=== PATIENT | female | born 1950 | race African-American/Black ===

== ENCOUNTER → 2017-07-21 | Day surgery (SDC) | payer MEDICARE ==
--- NOTE | 2017-07-18 11:56 | Diagnostic Imaging Report ---
PROCEDURE: X-RAY CHEST, TWO VIEWS COMPARISON: Acute abdominal series 10/18/2016. INDICATIONS: PREOP FINDINGS: Lungs are well-inflated. Calcified granuloma in the right lower lung is unchanged and no consolidation, pleural effusion, or pneumothorax. Stable cardiomediastinal contour with tortuosity and atherosclerotic calcification of the thoracic aorta. Normal heart size. No pulmonary edema. No acute osseous abnormality. Multilevel degenerative disc changes of the thoracic spine. Surgical clips project over the midepigastric region. CONCLUSION: No acute cardiopulmonary abnormality. Dictated by: Joseph Mosley M.D. on 07/18/2017 at 12:04 Electronically approved by: Joseph Mosley M.D. on 07/18/2017 at 12:04
[2017-07-18 12:04] LABS: BASOPHILS % 0.7 % (0.0-1.0); EOSINOPHILS # (AUTO) 0.1 (0.0-0.4); EOSINOPHILS % 0.9 % (0.0-6.0); HEMATOCRIT 38.6 % (34.2-44.1); HEMOGLOBIN 12.5 g/dL (12.0-16.0); LYMPHOCYTES # (AUTO) 1.5 (1.0-3.2); LYMPHOCYTES % 26.1 % (18.0-39.1); MEAN CORPUSCULAR HEMOGLOBIN 28.2 pg (28-32); MEAN CORPUSCULAR HGB CONC 32.4 g/dL (31-35); MEAN CORPUSCULAR VOLUME 87.1 fL (81-99); MONOCYTES # (AUTO) 0.4 (0.2-0.8); MONOCYTES % 6.9 % (4.4-11.3); NEUTROPHILS # (AUTO) 3.7 (2.1-6.9); NEUTROPHILS % 65.2 % (38.7-80.0); PLATELET COUNT 173 x10e3/uL (140-360); RED BLOOD COUNT 4.43 x10e6/uL (3.6-5.1); RED CELL DISTRIBUTION WIDTH 13.2 % (11.7-14.4)
[2017-07-18 12:21] LABS: ANION GAP 12.1 mmol/L (8-16); BLOOD UREA NITROGEN 19 mg/dL (7-26); BUN/CREATININE RATIO 20 (6-25); CALCIUM 9.3 mg/dL (8.4-10.2); CARBON DIOXIDE 27 mmol/L (22-29); CHLORIDE 107 mmol/L (98-107); CREATININE, SERUM 0.94 mg/dL (0.57-1.11); EST GLOMERULAR FILTRATION RATE > 60 ML/MIN (60-); GLUCOSE 151 mg/dL (74-118); POTASSIUM 4.1 mmol/L (3.5-5.1); SODIUM 142 mmol/L (136-145)
[~2017-07-21] MED LIST: ACTOS30 MG PO; AMARYL2 MG PO; AMOXICILLIN500 M1 PO; ASA-CA CARB-MA325 MG; ASPIR 8181 MG PO; ASPIRIN PO; ATORVASTATIN CA20 MG PO; BACTRIM DS TAB1 EACH PO; BUPIVACAINE HCL 0.5% INJ 30 ML VIAL INJ ONE; CALCIUM PO; CARAFATE1 GM/10 ML PO; CEFAZOLIN SOD 1 GM/NS 50ML 50 ML IV ONE; CEPHALEXIN500 MG PO; CIPRO500 MG PO; DEXAMETHASONE SOD PHOS INJ 4 MG/ML VIAL ONE; DEXTROSE 5% 250ML 250 ML IV ONE; DSS100 MG PO; FENTANYL CITRATE/PF 100MCG/2 ML INJ ONE; FLAGYL250 MG PO; GABAPENTIN300 MG PO; GLIMEPIRIDE2 MG PO; GLYBURIDE2.5 MG PO; LIDOCAINE HCL 2% LOCAL INJ 5 ML SDV VIAL INJ ONE; LISINOPRIL-HCT1 EACH PO; MIDAZOLAM HCL 2 MG/2 ML VIAL ONE; MORPHINE SULFATE 2 MG/ML SYR ONE; MUPIROCIN 2% OINT 22 GM TUBE ONE; MVI PO; NORVASC5 MG PO; OMEPRAZOLE20 M1 PO; ONDANSETRON HCL INJ 2 MG/ML VIAL ONE; PANTOPRAZOLE SO40 MG PO; PROMETHAZINE HC25 M1 PO; PROPOFOL IV EMULSION 10 MG/ML 20 ML VIAL ONE; REGLAN10 MG PO; SEVOFLURANE INHAL SOLN 250 ML PEN BTL ONE; TRIBENZOR 20-51 EACH PO; TYLENOL WITH C1 EACH PO; ULTRAM 50MG50 MG PO; VYTORIN 10-401 EACH PO; Z.0.BENICAR40 MG PO; Z.0.NEURONTIN300 MG; Z.0.NORVASC10 MG PO; Z.0.VYTORIN 10-401 E; ZOFRAN ODT4 MG PO; [UNRECOGNIZED DRUG - CODE] PO; [UNRECOGNIZED DRUG - OTHER]; [UNRECOGNIZED DRUG - OTHER]; [UNRECOGNIZED DRUG - REMARK]
--- NOTE | 2017-07-21 16:38 | Operative Report ---
DATE OF PROCEDURE: July 21, 2017 PREOPERATIVE DIAGNOSIS: Right carpal tunnel syndrome. POSTOPERATIVE DIAGNOSES 1. Right carpal tunnel syndrome. 2. Flexor tenosynovitis, right wrist. PROCEDURES 1. Right open carpal tunnel release. 2. Flexor tenosynovectomy, right wrist. ANESTHESIA: General. HISTORY: The patient is a 66-year-old female with EMG-proven right carpal tunnel syndrome. Risks, benefits and alternatives of treatment were discussed with the patient. The patient is prepared to undergo the procedure as outlined. PROCEDURE: The patient was brought to the operating theater. After the induction of adequate general inhalation anesthesia, the patient was prepped and draped in the supine position. A time out was performed by the entire operating room team. A 2.5-cm incision was marked out in the intrathenar space. The right upper extremity was exsanguinated and a tourniquet was inflated to a pressure of 250 mmHg. The incision was made through the skin and subcutaneous tissues, and all venous tributaries were controlled with bipolar cautery. The incision was deepened through the palmar fascia until the transverse carpal ligament was identified. The ligament was sharply sectioned, taking care to protect and preserve the median nerve underlying it. After the complete width of the ligament had been transected, the distal volar forearm fascia was divided under direct view. Proliferative flexor tenosynovium was noticed to encompass the median nerve and this was radically excised. After performing this maneuver, the nerve was noted to lie adequately decompressed. The wound was copiously irrigated with bacteriostatic saline, closed with 5-0 nylon in an interrupted horizontal mattress fashion. A Marcaine field block was performed at the operative site. Tourniquet was deflated. All of the fingers pinked up nicely and a sterile bulking conforming bandage was applied to the hand and the wrist. A fiberglass splint was fashioned to maintain the wrist in a modest amount of extension. This was held in place with a loosely wrapped Zheng wrap. The patient tolerated the procedure well and was brought to the recovery room in satisfactory condition and discharged with a postoperative instruction sheet as well as a followup appointment. Job#: [id number]
--- NOTE | 2017-07-21 16:40 | Operative Report ---
DATE OF PROCEDURE: July 21, 2017 PREOPERATIVE DIAGNOSIS: Left carpal tunnel syndrome. POSTOPERATIVE DIAGNOSES 1. Left carpal tunnel syndrome. 2. Flexor tenosynovitis, left wrist. PROCEDURES 1. Left open carpal tunnel release. 2. Flexor tenosynovectomy, left wrist. ANESTHESIA: General. HISTORY: The patient is a 66-year-old female with EMG-proven left carpal tunnel syndrome. Risks, benefits and alternatives of treatment were discussed with the patient. The patient is prepared to undergo the procedure as outlined. PROCEDURE: The patient was brought to the operating theater. After the induction of adequate general inhalation anesthesia, the patient was prepped and draped in the supine position. A time out was performed by the entire operating room team. A 2.5-cm incision was marked out in the intrathenar space. The left upper extremity was exsanguinated and a tourniquet was inflated to a pressure of 250 mmHg. The incision was made through the skin and subcutaneous tissues and all venous tributaries were controlled with bipolar cautery. The incision was deepened through the palmar fascia until the transverse carpal ligament was identified. The ligament was sharply sectioned, taking care to protect and preserve the median nerve underlying it. After the complete width of the ligament had been transected, the distal volar forearm fascia was divided under direct view. Proliferative flexor tenosynovium was noticed to encompass the median nerve and this was radically excised. After performing this maneuver, the nerve was noted to lie adequately decompressed. The wound was copiously irrigated with bacteriostatic saline, closed with 5-0 nylon in an interrupted horizontal mattress fashion. A Marcaine field block was performed at the operative site. Tourniquet was deflated. All of the fingers pinked up nicely and a sterile bulking conforming bandage was applied to the hand and the wrist. A fiberglass splint was fashioned to maintain the wrist in a modest amount of extension. This was held in place with a loosely wrapped Zheng wrap. The patient tolerated the procedure well and was brought to the recovery room in satisfactory condition and discharged with a postoperative instruction sheet as well as a followup appointment. Job#: [id number]
== END | disposition home or self-care (01) ==
LOC: OR 07:29
PROVIDERS: ATTEND Plastic Surgery
DX: G56.02 Carpal tunnel syndrome, left upper limb (principal); M65.842 Other synovitis and tenosynovitis, left hand; G56.01 Carpal tunnel syndrome, right upper limb; M65.841 Other synovitis and tenosynovitis, right hand; G47.33 Obstructive sleep apnea (adult) (pediatric); I10 Essential (primary) hypertension; E11.9 Type 2 diabetes mellitus without complications; K21.9 Gastro-esophageal reflux disease without esophagitis; Z01.810 Encounter for preprocedural cardiovascular examination; Z01.812 Encounter for preprocedural laboratory examination; Z01.818 Encounter for other preprocedural examination; Z86.73 Personal history of transient ischemic attack (TIA), and cerebral infarction without residual deficits
CPT/HCPCS: 25115; 36415 ×2; 71020; 80048; 82948; 85025; 93005; J1100; J2001; J2250; J2270; J2405

== ENCOUNTER → 2017-07-23 | Day surgery (SDC) | payer MEDICARE ==
[~2017-07-23] MED LIST changes: -BUPIVACAINE HCL 0.5% INJ 30 ML VIAL INJ ONE; -CEFAZOLIN SOD 1 GM/NS 50ML 50 ML IV ONE; -DEXAMETHASONE SOD PHOS INJ 4 MG/ML VIAL ONE; -DEXTROSE 5% 250ML 250 ML IV ONE; -MORPHINE SULFATE 2 MG/ML SYR ONE; -MUPIROCIN 2% OINT 22 GM TUBE ONE; -ONDANSETRON HCL INJ 2 MG/ML VIAL ONE; -PROPOFOL IV EMULSION 10 MG/ML 20 ML VIAL ONE; +PROPOFOL IV EMULSION 10 MG/ML 50 ML VIAL ONE; -SEVOFLURANE INHAL SOLN 250 ML PEN BTL ONE
--- NOTE | 2017-07-23 09:04 | Operative Report ---
DATE OF PROCEDURE: July 23, 2017 PROCEDURE PERFORMED: Esophagogastroduodenoscopy with esophageal dilatation. REFERRING PHYSICIAN: Dr. Michelle Silverman INDICATIONS FOR EGD: Dysphagia to solids. MEDICATION: Patient was done under MAC. Please see anesthesiologist note. PROCEDURE IN DETAIL: With the patient in left lateral decubitus position, flexible fiberoptic Olympus gastroscope was introduced into the esophagus under direct visualization without any difficulty. The esophagus overall appeared to be within normal limits. There was a mild stricture noted at the GE junction that was dilated to size 52-Salvadorean Rausch. The scope was advanced into a gastric cuff. Patient is status post Michele-en-Y with intact anastomosis and no marginal ulcers, enteric loop was patent. The scope was subsequently withdrawn. Patient tolerated the procedure well. IMPRESSION: 1. Normal esophagus. 2. Esophageal stricture, gastroesophageal junction, dilated to size 52-Salvadorean Rausch. 3. Status post Michele-en-Y, anastomosis intact, no marginal ulcers. Enteric loop patent. PLAN: Continue Protonix 40 mg 1 p.o. a.c. b.i.d. as well as Reglan 10 mg p.o. nightly. Job#: [id number] cc:MICHELLE SILVERMAN MD
== END | disposition home or self-care (01) ==
LOC: OR 06:24
PROVIDERS: ATTEND Internal Medicine Gastroenterology
DX: K22.2 Esophageal obstruction (principal); Z98.84 Bariatric surgery status; K21.9 Gastro-esophageal reflux disease without esophagitis; K25.9 Gastric ulcer, unspecified as acute or chronic, without hemorrhage or perforation; G47.33 Obstructive sleep apnea (adult) (pediatric); I10 Essential (primary) hypertension; E11.9 Type 2 diabetes mellitus without complications; M19.90 Unspecified osteoarthritis, unspecified site; Z86.73 Personal history of transient ischemic attack (TIA), and cerebral infarction without residual deficits
CPT/HCPCS: 36415; 43235; 43450; 82948; J2001; J2250

== ENCOUNTER → 2017-08-12 | Outpatient (CLI) | payer MEDICARE ==
[~2017-08-12] MED LIST changes: +DIATRIZOATE MEGL/DIATRIZOA SOD 120 ML BTL PO ONE; -FENTANYL CITRATE/PF 100MCG/2 ML INJ ONE; -LIDOCAINE HCL 2% LOCAL INJ 5 ML SDV VIAL INJ ONE; -MIDAZOLAM HCL 2 MG/2 ML VIAL ONE; -PROPOFOL IV EMULSION 10 MG/ML 50 ML VIAL ONE
[2017-08-12 18:27] LABS: BLOOD UREA NITROGEN 17 mg/dL (7-26); BUN/CREATININE RATIO 22 (6-25); CREATININE, SERUM 0.78 mg/dL (0.57-1.11); EST GLOMERULAR FILTRATION RATE > 60 ML/MIN (60-)
--- NOTE | 2017-08-12 19:46 | Diagnostic Imaging Report ---
EXAM: CT Abdomen and Pelvis WITHOUT contrast INDICATION: Abdominal pain. Hernia repair. Appendectomy. Cholecystectomy. Intestinal surgery COMPARISON: 09/29/2015 TECHNIQUE: Abdomen and pelvis were scanned utilizing a multidetector helical scanner from the lung base to the pubic symphysis without administration of IV contrast. Absence of intravenous contrast decreases sensitivity for detection of focal lesions and vascular pathology. Coronal and sagittal reformations were obtained. Routine protocol was performed. IV CONTRAST: None. ORAL CONTRAST: Water RADIATION DOSE: Total DLP: 713.04 mGy*cm Estimated effective dose: (DLP x 0.015 x size factor) mSv COMPLICATIONS: None FINDINGS: LOWER THORAX: No consolidations LIVER/BILIARY: Hepatic steatosis. Cholecystectomy. SPLEEN/PANCREAS: No masses ADRENALS: No nodules KIDNEYS: Symmetric perfusion. No enhancing masses. No hydronephrosis. GI TRACT: Status post gastric bypass VESSELS: Atherosclerotic changes, mild PERITONEUM/RETROPERITONEUM: No free air or fluid LYMPH NODES: No lymphadenopathy REPRODUCTIVE ORGANS: Unremarkable BLADDER: Unremarkable SOFT TISSUES: Thinning of the lower anterior right abdominal wall with stranding in the adjacent subcutaneous fat best seen on series 2 image 63. This measures approximately 4 cm in maximal dimension and may extend to the skin surface. Additionally, there is a round fluid collection which appears to extend from the anterior perivagina region superiorly to the level of the anterior abdominal rectus musculature. The appearance of this is essentially unchanged and of unknown clinical significance. This is best seen on series 2 image 65. BONES: No suspicious bone lesions. IMPRESSION: Limited study without the use of IV contrast. Repair of the previously seen anterior right abdominal lower quadrant hernia. There is some fat stranding/fluid in the adjacent subcutaneous fat which may extend to the skin surface. No well-formed drainable fluid collection/abscess is seen. Additionally, there is a round fluid collection which appears to extend from the anterior perivagina region superiorly to the level of the anterior abdominal rectus musculature. The appearance of this is essentially unchanged and of unknown clinical significance. Signed by: Dr. Collin Kuhn M.D. on 08/12/2017 7:42 PM
== END ==
LOC: CT 16:52
PROVIDERS: ATTEND Internal Medicine Gastroenterology
DX: R10.9 Unspecified abdominal pain (principal)
CPT/HCPCS: 36415; 74176; 82565; 84520; Q9963

== ENCOUNTER → 2017-08-30 | Outpatient (CLI) | payer MEDICARE ==
[~2017-08-30] MED LIST changes: -DIATRIZOATE MEGL/DIATRIZOA SOD 120 ML BTL PO ONE; +EPHEDRINE SULFATE INJ 50 MG/10 ML SYR ONE; +FENTANYL CITRATE/PF 100MCG/2 ML INJ ONE; +LABETALOL HCL IV 5 MG/ML 20ML MDV ONE; +LIDOCAINE HCL 2% LOCAL INJ 5 ML SDV VIAL INJ ONE; +MIDAZOLAM HCL 2 MG/2 ML VIAL ONE; +SODIUM CHLORIDE 0.9% 250ML 500 ML ONE
--- NOTE | 2017-08-30 11:41 | Diagnostic Imaging Report ---
EXAMINATION: MRI of the lumbar spine without contrast HISTORY: Low back pain radiating to the right greater than left lower extremities with numbness and weakness for the last 2 years COMPARISON: Abdomen CT on 08/12/2017 TECHNIQUE: Sagittal T1, T2, STIR; axial T2 and proton density. FINDINGS: It is assumed that there are 5 lumbar vertebrae. Curvature/Alignment: -Normal lumbar lordosis. -Grade 1 degenerative spondylolisthesis at L4-5. -Mild kyphotic malalignment secondary the thoracolumbar region related to mild chronic compression deformity of the T10, T11 and T12 vertebral bodies, partially visualized prominent anterior bridging osteophyte in the lower thoracic spine. Vertebrae: No evidence of recent fracture, infection, or neoplasm. Prominent chronic endplate degenerative changes T10-T11 to T12-L1. Conus: Normal, terminating at L2 Cauda equina: Unremarkable. Lower thoracic: Decreased disc height and signal intensity at T10-T11, T11-T12 and T12-L1, symmetric disc bulges and marginal end plate osteophytes, no significant stenoses Paraspinal soft tissues: Moderate atrophy of the paraspinal muscles Degenerative changes: L1-L2: Unremarkable. L2-L3: Minimal symmetric disc bulge and facet arthrosis without stenosis L3-L4: Minimal asymmetrical right disc bulge and facet arthroses. No stenoses L4-L5: Prominent facet arthrosis, asymmetric to left disc bulge, ligamenta flava thickening and facet processes. Moderate spinal canal and mild foraminal stenosis mainly on the right. Minimal right facet joint effusion, bone marrow edema and periarticular swelling related to degenerative synovitis. L5-S1: Slightly asymmetric to the right disc bulge bilateral facet arthrosis. Mild right foraminal stenoses. Sacroiliac joints: Mild degenerative changes bilaterally IMPRESSION: 1. Grade 1 degenerative anterolisthesis at L4-5 due to left facet arthrosis. 2. Moderate degenerative spinal canal and mild foraminal stenoses at L4-5. 3. Mild degenerative facet synovitis mainly of the right side at L4-5. 4. Partially visualized degenerative changes in the lower thoracic spine as detailed above. Signed by: Dr. Megha Masters M.D. on 08/30/2017 11:37 AM
== END ==
LOC: MRI 07:35
PROVIDERS: ATTEND Physical Medicine & Rehabilitation Pain Medicine
DX: M54.16 Radiculopathy, lumbar region (principal); M48.061 Spinal stenosis, lumbar region without neurogenic claudication
CPT/HCPCS: 72148; J2001; J2250; J3490; J7050

== ENCOUNTER → 2017-09-01 | Day surgery (SDC) | payer MEDICARE ==
[2017-08-29 16:21] LABS: BASOPHILS % 0.6 % (0.0-1.0); EOSINOPHILS # (AUTO) 0.1 (0.0-0.4); EOSINOPHILS % 2.1 % (0.0-6.0); HEMATOCRIT 37.8 % (34.2-44.1); HEMOGLOBIN 12.1 g/dL (12.0-16.0); LYMPHOCYTES # (AUTO) 1.4 (1.0-3.2); LYMPHOCYTES % 28.8 % (18.0-39.1); MEAN CORPUSCULAR VOLUME 87.5 fL (81-99); MONOCYTES # (AUTO) 0.4 (0.2-0.8); MONOCYTES % 7.5 % (4.4-11.3); NEUTROPHILS # (AUTO) 2.9 (2.1-6.9); NEUTROPHILS % 60.8 % (38.7-80.0); PLATELET COUNT 189 x10e3/uL (140-360); RED BLOOD COUNT 4.32 x10e6/uL (3.6-5.1); RED CELL DISTRIBUTION WIDTH 13.1 % (11.7-14.4)
[2017-08-29 16:43] LABS: ANION GAP 12.6 mmol/L (8-16); BLOOD UREA NITROGEN 18 mg/dL (7-26); BUN/CREATININE RATIO 23 (6-25); CALCIUM 8.7 mg/dL (8.4-10.2); CARBON DIOXIDE 27 mmol/L (22-29); CHLORIDE 105 mmol/L (98-107); EST GLOMERULAR FILTRATION RATE > 60 ML/MIN (60-); GLUCOSE 88 mg/dL (74-118); POTASSIUM 3.6 mmol/L (3.5-5.1); SODIUM 141 mmol/L (136-145)
--- NOTE | 2017-08-29 16:46 | Diagnostic Imaging Report ---
PROCEDURE: Frontal and lateral views of the chest. COMPARISON: 07/18/17 INDICATIONS: PRE OP FINDINGS: Lines/tubes: None. Lungs: The lungs are well inflated and clear. There is no evidence of pneumonia or pulmonary edema. Pleura: There is no pleural effusion or pneumothorax. Heart and mediastinum: The heart and the mediastinum are normal. Aorta is mildly calcified and tortuous. Bones: No acute bony abnormality. Degenerative changes of the thoracic spine. Right upper quadrant surgical clips. IMPRESSION: 1. No acute cardiopulmonary disease. Dictated by: Rigo Briseno M.D. on 08/29/2017 at 16:54 Electronically approved by: Rigo Briseno M.D. on 08/29/2017 at 16:54
[~2017-09-01] MED LIST changes: +BACITRACIN 50,000 UNIT VIAL ONE; +BUPIVACAINE HCL 0.5% INJ 30 ML VIAL INJ ONE; +CEFAZOLIN SOD 1 GM VIAL ONE; +DESFLURANE 240 ML BTL INH ONE; +DEXAMETHASONE SOD PHOS INJ 4 MG/ML VIAL ONE; -LABETALOL HCL IV 5 MG/ML 20ML MDV ONE; +METOCLOPRAMIDE HCL 10 MG/2ML VIAL ONE; +ONDANSETRON HCL INJ 2 MG/ML VIAL ONE; +PROPOFOL IV EMULSION 10 MG/ML 20 ML VIAL ONE; -SODIUM CHLORIDE 0.9% 250ML 500 ML ONE
--- OUTSIDE RECORDS SUMMARY | 2017-09-01 05:31 | XMS REPORT | Clinical Summary ---
Author Author [facility] Organization [facility] Address Unknown Phone Unavailable Care Team Providers Care Assistant Service Manager Name Role Phone Quinten Silverman MD PCP Allergies No Known Allergies Current Medications Prescription Sig. Disp. Refills Start End Date Status Date diazePAM (VALIUM) 5 MG Take 1 tablet (5 mg 1 tablet 0 08/26/1908/27 tablet total) by mouth daily as 18 18 needed for anxiety for up to 1 day. Active Problems No known active problems Encounters Date Type Specialty Care Team Description 08/31/2017 Office Visit General Surgery Jalil Zepeda MD Abdominal wall fistula (Primary Dx) 08/31/2017 Hospital Radiology Jalil Zepeda MD Abdominal fistula Encounter 08/26/2017 Office Visit General Surgery Ivis Nash Enterocutaneous fistula STEF[facility]IA [place] (Primary Dx) Jalil Zepeda MD 08/26/2017 Orders Only General Surgery Jalil Zepeda MD Abdominal fistula (Primary Dx) after 08/31/2016 Family History Medical History Relation Name Comments Colon cancer Brother Arthritis Father Diabetes Father Heart disease Father Arthritis Mother Relation Name Status Comments Brother Father Mother Social History Tobacco Use Types Packs/Day Years Used Date Never Smoker Smokeless Tobacco: Never Used Alcohol Use Drinks/Week oz/Week Comments No Sex Assigned at Date Recorded Not on file Last Filed Vital Signs Vital Sign Reading Time Taken Blood Pressure 110/65 08/31/2017 12:50 PM [employer] Pulse 69 08/31/2017 12:50 PM [employer] Temperature 36.8 C (98.2 F) 08/31/2017 12:50 PM [employer] Respiratory Rate - - Oxygen Saturation - - Inhaled Oxygen - - Concentration Weight 96.2 kg (212 lb) 08/26/2017 11:13 AM [employer] Height 149.9 cm (4' 11") 08/26/2017 11:13 AM [employer] Body Mass Index 42.82 08/26/2017 11:13 AM [employer] Plan of Treatment Health Maintenance Due Date Last Done Comments COLONOSCOPY 10/25/1999 MAMMOGRAM 10/25/1999 ZOSTER VACCINE 2009 PNEUMOCOCCAL-13 2014 INFLUENZA VACCINE 03/01/2017 PNEUMOCOCCAL Completed 05/26/2016 POLYSACCHARIDE VACCINE AGE 65 AND OVER Results * [place] Sinus Tract Injection Fistulogram (08/31/2017 9:45 AM) Specimen Performing Laboratory [facility] [address] [place] [address] Narrative EXAMINATION:[place] SINUS TRACT INJECTION FISTULOGRAM CLINICAL HISTORY:K63.2 Fistula of intestine, abdominal Fistula COMPARISON:None. FINDINGS: 1 minute fluoroscopic time. Dose equals 93 mgy No previous images were available for comparison. Utilizing sterile technique, the small opening just superior to the right labia was catheterized and advanced approximately 2 cm. Instillation of water-soluble contrast demonstrates a small 1 cm collection that does not communicate. Further evaluation with MR of the pelvis and perineum may be of benefit. IMPRESSION: Very small sinus tract [id number] Procedure Note Interface, Radiology Results Incoming - 08/31/2017 10:33 AM [employer] EXAMINATION: [place] SINUS TRACT INJECTION FISTULOGRAM CLINICAL HISTORY: K63.2 Fistula of intestine, abdominal Fistula COMPARISON: None. FINDINGS: 1 minute fluoroscopic time. Dose equals 93 mgy No previous images were available for comparison. Utilizing sterile technique, the small opening just superior to the right labia was catheterized and advanced approximately 2 cm. Instillation of water-soluble contrast demonstrates a small 1 cm collection that does not communicate. Further evaluation with MR of the pelvis and perineum may be of benefit. IMPRESSION: Very small sinus tract [id number] after 08/31/2016 Insurance Payer Benefit Subscriber ID Type Phone Address Plan / Group MEDICARE MEDICARE [id number] Medicare [place] PART A AND B AARP AAR [id number] Commercial SUPPLEMENT
--- OUTSIDE RECORDS SUMMARY | 2017-09-01 05:31 | XMS REPORT ---
Author Author [facility] Address Unknown Phone Unavailable Care Team Providers Care Water Superintendent Name Role Phone Carmen COLUNGA Unavailable Unavailable SAMSON BURKETT Unavailable Unavailable KRYSTEN MAIN Unavailable Unavailable ANDREA STEEL Unavailable Unavailable MICHELLE HENDRIX Unavailable Unavailable Problems This patient has no known problems. Allergies, Adverse Reactions, Alerts This patient has no known allergies or adverse reactions. Medications This patient has no known medications. Results Test Description Test Time Test Comments Text Results Atomic Results Result Comments MRI SPINE LUMBAR WO [place] [address] Patient Name: YAYA ABBOTT MR #: [id number] : 1950 Age/Sex: 66/F Req #: [id number] Adm Physician: Ordered by: SAMSON BURKETT MD Report #: [id number] Location: MRI Room/Bed: Procedure: [id number] MRI/MRI SPINE LUMBAR WO Exam Date: 08/30/17 Exam Time: 0930 REPORT STATUS: Signed EXAMINATION: MRI of the lumbar spine without contrast HISTORY: Low back pain radiating to the right greater than left lower extremities with numbness and weakness for the last 2 years COMPARISON: Abdomen CT on 08/12/2017 TECHNIQUE: Sagittal T1, T2, STIR; axial T2 and proton density. FINDINGS: It is assumed that there are 5 lumbar vertebrae. Curvature/ Alignment: -Normal lumbar lordosis. -Grade 1 degenerative spondylolisthesis at L4-5. -Mild kyphotic malalignment secondary the thoracolumbar region related to mild chronic compression deformity of the T10 , T11 and T12 vertebral bodies, partially visualized prominent anterior bridging osteophyte in the lower thoracic spine. Vertebrae: No evidence of recent fracture, infection, or neoplasm. Prominent chronic endplate degenerative changes T10-T11 to T12-L1. Conus: Normal, terminating at L2 Cauda equina: Unremarkable. Lower thoracic: Decreased disc height and signal intensity at T10-T11, T11-T12 and T12-L1, symmetric disc bulges and marginal end plate osteophytes, no significant stenoses Paraspinal soft tissues: Moderate atrophy of the paraspinal muscles Degenerative changes: L1-L2: Unremarkable. L2-L3 : Minimal symmetric disc bulge and facet arthrosis without stenosis L3- L4: Minimal asymmetrical right disc bulge and facet arthroses. No stenoses L4-L5: Prominent facet arthrosis, asymmetric to left disc bulge, ligamenta flava thickening and facet processes. Moderate spinal canal and mild foraminal stenosis mainly on the right. Minimal right facet joint effusion, bone marrow edema and periarticular swelling related to degenerative synovitis. L5-S1: Slightly asymmetric to the right disc bulge bilateral facet arthrosis. Mild right foraminal stenoses. Sacroiliac joints: Mild degenerative changes bilaterally IMPRESSION: 1. Grade 1 degenerative anterolisthesis at L4-5 due to left facet arthrosis. 2. Moderate degenerative spinal canal and mild foraminal stenoses at L4- 5. 3. Mild degenerative facet synovitis mainly of the right side at L4-5. 4. Partially visualized degenerative changes in the lower thoracic spine as detailed above. Signed by: Dr. Isidoro Masters M.D. on 08/30/2017 11 :37 AM Dictated By: ISIDORO MASTERS MD 1138 Transcribed By: OMER on 08/30/17 1133 COPY TO: SAMSON BURKETT MD CHEST 2 VIEWS [place] [address] Patient Name: YAYA ABBOTT MR #: [id number] : 1950 Age/Sex: 66/F Req #: [id number] Adm Physician: Ordered by: ADAM BUSCH MD Report #: [id number] Location: OR Room/Bed: Procedure: [id number] DX/CHEST 2 VIEWS Exam Date: 08/29/17 Exam Time: 1620 REPORT STATUS: Signed PROCEDURE: Frontal and lateral views of the chest. COMPARISON: 07/18/17 INDICATIONS: PRE OP FINDINGS: Lines/tubes: None. Lungs: The lungs are well inflated and clear. There is no evidence of pneumonia or pulmonary edema. Pleura: There is no pleural effusion or pneumothorax. Heart and mediastinum: The heart and the mediastinum are normal. Aorta is mildly calcified and tortuous. Bones: No acute bony abnormality. Degenerative changes of the thoracic spine. Right upper quadrant surgical clips. IMPRESSION: 1. No acute cardiopulmonary disease. Dictated by: Rigo Rodriguez M.D. on 08/29/2017 at 16:54 Electronically approved by: Rigo Rodriguez M.D. on 08/29/2017 at 16:54 Dictated By: RIGO RODRIGUEZ MD 53 Transcribed By: PACHECO on 08/29/171653 COPY TO: ADAM BUSCH MD CT ABDOMEN/PELVIS [place] [address] Patient Name: YAYA ABBOTT MR #: [id number] : 1950 Age/Sex: 66/F Req #: [id number] Adm Physician: Ordered by: KRYSTEN MAIN MD Report #: [id number] Location: CT Room/Bed: Procedure: [id number] CT/CT ABDOMEN/PELVIS WO Exam Date: 08/12/17 Exam Time: 1908 REPORT STATUS: Signed EXAM: CT Abdomen and Pelvis WITHOUT contrast INDICATION: Abdominal pain. Hernia repair. Appendectomy. Cholecystectomy. Intestinal surgery COMPARISON: 09/29/2015 TECHNIQUE: Abdomen and pelvis were scanned utilizing a multidetector helical scanner from the lung base to the pubic symphysis without administration of IV contrast. Absence of intravenous contrast decreases sensitivity for detection of focal lesions and vascular pathology. Coronal and sagittal reformations were obtained. Routine protocol was performed. IV CONTRAST: None. ORAL CONTRAST: Water RADIATION DOSE: Total DLP : 713.04 mGy*cm Estimated effective dose: (DLP x 0.015 x size factor) mSv COMPLICATIONS: None FINDINGS: LOWER THORAX: No consolidations LIVER/BILIARY: Hepatic steatosis. Cholecystectomy. SPLEEN/PANCREAS: No masses ADRENALS: No nodules KIDNEYS: Symmetric perfusion. No enhancing masses. No hydronephrosis. GI TRACT: Status post gastric bypass VESSELS: Atherosclerotic changes, mild PERITONEUM/ RETROPERITONEUM: No free air or fluid LYMPH NODES: No lymphadenopathy REPRODUCTIVE ORGANS: Unremarkable BLADDER: Unremarkable SOFT TISSUES: Thinning of the lower anterior right abdominal wall with stranding in the adjacent subcutaneous fat best seen on series 2 image 63. This measures approximately 4 cm in maximal dimension and may extend to the skin surface. Additionally, there is a round fluid collection which appears to extend from the anterior perivagina region superiorly to the level of the anterior abdominal rectus musculature. The appearance of this is essentially unchanged and of unknown clinical significance. This is best seen on series 2 image 65. BONES: No suspicious bone lesions. IMPRESSION: Limited study without the use of IV contrast. Repair of the previously seen anterior right abdominal lower quadrant hernia. There is some fat stranding/fluid in the adjacent subcutaneous fat which may extend to the skin surface. No well- formed drainable fluid collection/abscess is seen. Additionally, there is a round fluid collection which appears to extend from the anterior perivagina region superiorly to the level of the anterior abdominal rectus musculature. The appearance of this is essentially unchanged and of unknown clinical significance. Signed by: Dr. Mateus Kuhn M.D. on 08/12/2017 7: 42 PM Dictated By: MATEUS KUHN MD, MD 41 Transcribed By: OMER on 08/12/171941 COPY TO: KRYSTEN MAIN MD CHEST [address] [facility] [address] [place] [address] Patient Name: YAYA ABBOTT MR #: [id number] : 1950 Age/Sex: 66/F Req #: [id number] Adm Physician: Ordered by: ANDREA STEEL MD Report #: [id number] Location: OR Room/Bed: Procedure: [id number] DX/CHEST 2 VIEWS Exam Date: 07/18/17 Exam Time : 1140 REPORT STATUS: Signed PROCEDURE: X-RAY CHEST, TWO VIEWS COMPARISON: Acute abdominal series 10/18/2016. INDICATIONS: PREOP FINDINGS: Lungs are well-inflated. Calcified granuloma in the right lower lung is unchanged and no consolidation, pleural effusion, or pneumothorax. Stable cardiomediastinal contour with tortuosity and atherosclerotic calcification of the thoracic aorta. Normal heart size. No pulmonary edema. No acute osseous abnormality. Multilevel degenerative disc changes of the thoracic spine. Surgical clips project over the midepigastric region. CONCLUSION: No acute cardiopulmonary abnormality. Dictated by: Vonda Mosley M.D. on 07/18/2017 at 12:04 Electronically approved by: Vonda Mosley M.D. on 07/18/2017 at 12:04 Dictated By: VONDA MOSLEY MD 1204 Transcribed By: PACHECO on 07/18/17 1204 COPY TO : ANDREA STEEL MD MRI SPINE CERVICAL WO [place] [address] Patient Name: YAYA ABBOTT MR #: [id number] : 1950 Age/Sex: 66/F Req #: [id number] Adm Physician: Ordered by: SAMSON BURKETT MD Report #: [id number] Location: MRI Room/Bed: Procedure: [id number] MRI/MRI SPINE CERVICAL WO Exam Date: 05/12/17 Exam Time: 1155 REPORT STATUS: Signed Exam: Cervical spine MRI without IV contrast History: Neck pain with pain that radiates down both legs and pain in arms. Comparison studies: None Technique: Sagittal T1, T2 and IR, axial T2 and axial gradient echo Intravenous contrast: None Findings: Exam is limited by artifacts related to patient motion. ] Alignment: Normal lordosis. No scoliosis. Cervicomedullary junction: No abnormalities. Patent foramen magnum. Soft tissues: No T2 hyperintense inflammatory changes. Spinal cord: Normal in size and signal from the foramen magnum through T1 Vertebrae: No fractures, infection or neoplasm. Degenerative changes: C2-C3: No abnormalities. C3-C4: No abnormalities. C4-C5: Small disc bulge does not result in significant canal stenosis. Patent foramina. C5-C6: Minimal canal stenosis due due to a small disc bulge. Mild left foraminal stenosis due to uncovertebral arthrosis. C6-C7: Minimal canal stenosis due to a small disc bulge. Mild bilateral foraminal stenosis due to uncovertebral arthrosis. C7-T1: No abnormalities. IMPRESSION: Mild degenerative changes with mild canal stenosis at C5-C6 and at C6-C7 and mild foraminal stenosis on the left at C5-C6 and bilaterally at C6-C7 stenosis. Signed by: Dr. Vonda Yin M.D. on 05/13/2017 3:00 PM Dictated By: VONDA YIN MD 99 COPY TO: SAMSON BURKETT MD FOOT RIGHT COMPLETE [place] [address] Patient Name: YAYA ABBOTT MR #: [id number] : 1950 Age/Sex: 66/F Req #: [id number] Adm Physician: Ordered by: MICHELLE HENDRIX MD Report #: [id number] Location: [facility] Room/Bed: _ Procedure: [id number] DX/FOOT RIGHT COMPLETE Exam Date: Exam Time: REPORT STATUS: Signed PROCEDURE: X-RAY RIGHT FOOT, COMPLETE COMPARISON: None. INDICATIONS: PAIN TO 3RD/4TH/ 5TH TOE ON RIGHT FOOT. HIT ON TUESDAY FINDINGS: There are no fractures, dislocations, lytic or blastic lesions. The bones are well- mineralized. The soft-tissues are unremarkable. CONCLUSION: No acute radiographic abnormality. Dictated by: Chelsea Madrid M.D. on 2016 at 12:52 Electronically approved by: Chelsea Madrid M.D. on 2016 at 12:52 Dictated By: CHELSEA MADRID MD 125 Transcribed By: PACHECO on 04/06/17 125 COPY TO: MICHELLE HENDRIX MD
--- NOTE | 2017-09-01 11:20 | Operative Report ---
DATE OF PROCEDURE: September 01, 2017 DATE OF : 1950 PREOPERATIVE DIAGNOSIS: Right hallux valgus. POSTOPERATIVE DIAGNOSIS: Right hallux valgus. PLANNED PROCEDURE: Right Blue bunionectomy with implant. SURGEON: Filomena Monet DPM MERCHANDISING EXECUTION MANAGER: Edgar Mcclellan DPM ANESTHESIA: General with a postoperative block consisting of 15 mL of 0.5% Marcaine plain mixed with 1 mL of dexamethasone phosphate. HEMOSTASIS: Pneumatic ankle tourniquet set at 250 mmHg for a total time of approximately 30 minutes. MATERIALS: One [id number] reference 1st MPJ implant, 2-0 Vicryl, 3-0 Vicryl, and 4-0 Prolene. ESTIMATED BLOOD LOSS: Less than 10 mL. PATHOLOGY: None. DETAILS OF PROCEDURE: Patient was seen in the preoperative waiting room where the correct procedure and the site was identified. The patient was brought into the operating room and placed on the operating table in the supine position. General anesthesia was initiated at this time. A well-padded pneumatic tourniquet was placed about the patient's right ankle. The right foot and ankle were then scrubbed, prepped, and draped in the usual aseptic manner. The right foot and ankle were exsanguinated with an Esmarch bandage and the pneumatic ankle tourniquet was inflated to 250 mmHg for a total time of approximately 30 minutes. Attention was directed to the dorsal aspect of the patient's right 1st metatarsophalangeal joint where a 5 cm linear incision was made medial to the extensor hallucis longus tendon. The incision was carried through the subcutaneous tissues, them from deeper underlying structures. All vital neurovascular structures were identified, retracted medially and laterally, and all bleeders were cauterized or ligated as deemed necessary. At this time, a linear capsulotomy was performed at the level of 1st metatarsophalangeal joint. The capsule was reflected at the 1st metatarsophalangeal joint medial and lateral to allow for good visualization of the 1st metatarsophalangeal joint. The joint was noted to be severely denuded of articular cartilage. Approximately 20% of articular cartilage remained. There was a large dorsal exostosis with multiple osteophytes within the joint space. Utilizing a sagittal saw, the dorsal exostosis of the 1st metatarsal was resected. The medial eminence was resected as well as the lateral eminence. Next, the distal articular surface of the 1st metatarsal was excised with a straight osteotomy. These were all excised and passed off to the back table. Next, attention was directed to the base of the proximal phalanx where again nearly 80% of the articular cartilage has been damaged. Utilizing a sagittal saw, approximately one-third of the base of the proximal phalanx was resected and passed off to the back table. Next per silk spooler protocol, the guidewire was placed into the 1st metatarsophalangeal joint at a slight dorsal angle and reamed appropriately. Next, the guidewire was removed and placed into the proximal phalanx portion straight and again reamed appropriately per silk spooler protocol. This was confirmed via intraoperative fluoroscopy. Next, the wound was flushed again with copious amounts of sterile saline. Utilizing the tweezers, the grommets were placed proximally and distally followed by the size 2 [id number] reference implant. The fixation is stable and there was noted to be immediate improvement in range of motion to the 1st metatarsophalangeal joint. The wound was then again flushed with copious amounts of sterile saline mixed with bacitracin. The capsule was reapproximated utilizing a simple running suture with 2-0 Vicryl. Deep and subcutaneous tissue was reapproximated with 3-0 Vicryl and the skin was closed utilizing a running interlocking stitch of 4-0 Prolene. All incision sites were dressed with Adaptic, 4 x 4's, Kerlix, Zheng wrap, and a postop shoe. Patient tolerated the procedure and anesthesia well. Patient was transferred to postoperative recovery unit with vital signs stable and vascular status intact. The patient was monitored there for a short period of time before being sent home with the following written and oral instructions; 1. Keep the dressing clean, dry, and intact. 2. The patient to remain partial weightbearing in a postop shoe and to avoid excessive ambulation until being seen in the office. 3. The patient was given the office number and instructed to contact us if any problems should arise. Job#: [id number] SAK
== END | disposition home or self-care (01) ==
LOC: OR 05:28
PROVIDERS: ATTEND Podiatrist Foot & Ankle Surgery
DX: M20.11 Hallux valgus (acquired), right foot (principal); M20.21 Hallux rigidus, right foot; G47.33 Obstructive sleep apnea (adult) (pediatric); I10 Essential (primary) hypertension; E11.9 Type 2 diabetes mellitus without complications; K21.9 Gastro-esophageal reflux disease without esophagitis; R01.1 Cardiac murmur, unspecified; E78.5 Hyperlipidemia, unspecified; F17.210 Nicotine dependence, cigarettes, uncomplicated; Z01.810 Encounter for preprocedural cardiovascular examination; Z01.812 Encounter for preprocedural laboratory examination; Z01.818 Encounter for other preprocedural examination; Z86.73 Personal history of transient ischemic attack (TIA), and cerebral infarction without residual deficits
CPT/HCPCS: 28291; 36415 ×2; 71046; 80048; 82948; 85025; 93005; J0690; J1100; J2001; J2250; J2405; J2765

== ENCOUNTER 2018-02-18 13:36 | Observation (INO) | payer MEDICARE ==
[~2018-02-18] VITALS: Ht 149.9 cm; Wt 101.3 kg
[~2018-02-18 13:36] MED LIST changes: -BACITRACIN 50,000 UNIT VIAL ONE; -BUPIVACAINE HCL 0.5% INJ 30 ML VIAL INJ ONE; -CEFAZOLIN SOD 1 GM VIAL ONE; -DESFLURANE 240 ML BTL INH ONE; -DEXAMETHASONE SOD PHOS INJ 4 MG/ML VIAL ONE; -EPHEDRINE SULFATE INJ 50 MG/10 ML SYR ONE; -FENTANYL CITRATE/PF 100MCG/2 ML INJ ONE; -LIDOCAINE HCL 2% LOCAL INJ 5 ML SDV VIAL INJ ONE; -METOCLOPRAMIDE HCL 10 MG/2ML VIAL ONE; -MIDAZOLAM HCL 2 MG/2 ML VIAL ONE; -ONDANSETRON HCL INJ 2 MG/ML VIAL ONE; -PROPOFOL IV EMULSION 10 MG/ML 20 ML VIAL ONE
[2018-02-18] MEDS ORDERED: SODIUM CHLORIDE 0.9% 500ML 500 ML IV STA (13:46)
[2018-02-18] MEDS ORDERED: ONDANSETRON HCL INJ 2 MG/ML VIAL IV STA (13:57)
[2018-02-18] MEDS ORDERED: MECLIZINE HCL 12.5 MG TAB PO ONE (14:00)
[2018-02-18] MEDS ORDERED: ASPIRIN 81 MG CHEW TAB PO ONE (14:00)
[2018-02-18 14:09] LABS: BASOPHILS % 0.7 % (0.0-1.0); EOSINOPHILS # (AUTO) 0.1 (0.0-0.4); EOSINOPHILS % 1.6 % (0.0-6.0); HEMATOCRIT 35.7 % (34.2-44.1); HEMOGLOBIN 11.9 g/dL (12.0-16.0); LYMPHOCYTES # (AUTO) 1.5 (1.0-3.2); LYMPHOCYTES % 27.1 % (18.0-39.1); MEAN CORPUSCULAR HEMOGLOBIN 28.6 pg (28-32); MEAN CORPUSCULAR HGB CONC 33.3 g/dL (31-35); MEAN CORPUSCULAR VOLUME 85.8 fL (81-99); MONOCYTES # (AUTO) 0.6 (0.2-0.8); NEUTROPHILS # (AUTO) 3.3 (2.1-6.9); NEUTROPHILS % 59.4 % (38.7-80.0); PLATELET COUNT 168 x10e3/uL (140-360); RED BLOOD COUNT 4.16 x10e6/uL (3.6-5.1); RED CELL DISTRIBUTION WIDTH 13.1 % (11.7-14.4)
--- NOTE | 2018-02-18 14:30 | Diagnostic Imaging Report ---
Exam: Head CT without contrast History: Vertigo Comparison studies: Head CT 12/06/2014 and 12/03/2007. Technique: Axial images were obtained from the skull base to the vertex. Coronal and sagittal images reconstructed from the axial data. Intravenous contrast: None Findings: Scalp: No abnormalities. Bones: No fractures, blastic or lytic lesions. Brain sulci: Appropriate for age. Ventricles: Normal in size and configuration. No hydrocephalus. Extra-axial spaces: No masses, no fluid collection. Parenchyma: No abnormal densities. No masses, acute hemorrhage, acute or chronic vascular insults. Sellar/suprasellar region: Mildly expanded, CSF filled sella, unchanged Craniocervical junction: Patent foramen magnum. No Chiari one malformation. Incidental findings: Bilateral intraocular lens replacements. Atherosclerotic calcifications in the carotid siphons. IMPRESSION: 1. No acute intracranial abnormalities. 2. Unchanged incidental empty sella. 3. No changes from the previous head CT of 12/06/2014. Signed by: Dr. Joseph Angelo M.D. on 02/18/2018 2:26 PM
[2018-02-18 14:32] LABS: INR 1.08; PARTIAL THROMBOPLASTIN TIME 28.3 seconds (23.8-35.5); PROTHROMBIN TIME 13.2 seconds (11.9-14.5)
[2018-02-18 14:42] LABS: ALANINE AMINOTRANSFERASE 33 IU/L (0-55); ALBUMIN 3.5 g/dL (3.5-5.0); ALBUMIN/GLOBULIN RATIO 1.1 (0.8-2.0); ALKALINE PHOSPHATASE 78 IU/L (40-150); ANION GAP 13.2 mmol/L (8-16); BLOOD UREA NITROGEN 10 mg/dL (7-26); BUN/CREATININE RATIO 13 (6-25); CALCIUM 8.8 mg/dL (8.4-10.2); CARBON DIOXIDE 27 mmol/L (22-29); CHLORIDE 108 mmol/L (98-107); CREATINE KINASE 136 IU/L (29-168); CREATININE, SERUM 0.75 mg/dL (0.57-1.11); EST GLOMERULAR FILTRATION RATE > 60 ML/MIN (60-); GLUCOSE 85 mg/dL (74-118); POTASSIUM 3.2 mmol/L (3.5-5.1); SODIUM 145 mmol/L (136-145)
[2018-02-18 15:00] LABS: CLARITY,URINE CLEAR (CLEAR); COLOR,URINE STRAW (YELLOW)
[2018-02-18 15:03] LABS: BILIRUBIN,URINE NEGATIVE (NEGATIVE); KETONES,URINE NEGATIVE (NEGATIVE); LEUKOCYTE ESTERASE ,URINE NEGATIVE (NEGATIVE); NITRITE,URINE NEGATIVE (NEGATIVE); PROTEIN,URINE DIPSTICK NEGATIVE (NEGATIVE); URINE UROBILINOGEN 0.2 mg/dL (0.2 - 1)
[2018-02-18 15:15] LABS: EPITHELIAL CELLS,URINE FEW /LPF; WBC,URINE (MAN) 0-5 /HPF (0-5)
[2018-02-18] MEDS ORDERED: MECLIZINE HCL 12.5 MG TAB PO PRN (15:15)
[2018-02-18] MEDS ORDERED: ONDANSETRON HCL INJ 2 MG/ML VIAL IV PRN (15:15)
[2018-02-18 16:15] VITALS: BP 151/70
[2018-02-18] MEDS ORDERED: POTASSIUM CHLORIDE 20 MEQ TAB CR PO ONE (16:30)
[2018-02-18] MEDS ORDERED: PIOGLITAZONE HCL 30 MG PO SCH (16:45)
[2018-02-18] MEDS ORDERED: LORAZEPAM INJ 2 MG/ML VIAL IV ONE (17:00)
[2018-02-18] MEDS: METOCLOPRAMIDE HCL 10 MG TAB PO SCH ×2 (17:23→20:52)
[2018-02-18 17:31] LABS: FREE THYROXINE INDEX 2.1989 (1.4-3.8); THYROID STIMULATING HORMONE 2.68 uIU/mL (0.350-4.940)
[2018-02-18] MEDS: GABAPENTIN 300 MG CAP PO SCH ×2 (18:05→20:52)
[2018-02-18] MEDS: SODIUM CHLORIDE 0.9% 1000ML 1,000 ML IV SCH (18:05)
[2018-02-18 18:55] VITALS: BP 131/60
[2018-02-18 19:10] VITALS: BP 151/70
[2018-02-18 19:40] VITALS: BP 131/60
[2018-02-18] MEDS: AMLODIPINE BESYLATE 10 MG TAB PO SCH (20:52)
[2018-02-18 23:55] VITALS: BP 108/55
[2018-02-19] VITALS (8 sets, daily range): BP systolic 115–148; BP diastolic 58–68
[2018-02-19] MEDS: MECLIZINE HCL 12.5 MG TAB PO SCH ×2 (00:22→05:03)
--- NOTE | 2018-02-19 00:38 | History and Physical ---
CHIEF COMPLAINT: [age] female comes in with vertigo. HISTORY OF PRESENTING ILLNESS: This is Ms. Raven Roman, who is 67-year-old female with a history of diabetes mellitus, hypertension, hyperlipidemia, who was in usual state of health until about a day prior to admission the patient started to have vertigo, noted as spinning of the room around her and she had a similar symptom of this nature about 3 months ago when she was visiting [place] and a complete workup was done and the patient was found to have benign positional vertigo, was given meclizine and discharged. Currently, the patient has very similar symptoms associated with nausea, but the patient does have Zofran and Phenergan at home which she takes for nausea. The patient is currently admitted to be rule out CVA. PAST MEDICAL HISTORY: History of hypertension, history of hyperlipidemia, history of chronic reflux esophagitis, history of gastroparesis, and history of neuropathy. MEDICINES: She takes at home are: 1. Amlodipine 10 mg daily. 2. Atorvastatin 40 mg daily. 3. Gabapentin 300 mg q.i.d. 4. Glimepiride 2 mg daily. 5. Lisinopril/hydrochlorothiazide 1 tab daily. 6. Reglan 10 mg nightly. 7. Pantoprazole 40 mg daily. 8. Pioglitazone 30 mg daily. SURGICAL HISTORY: History of recent abdominal hernia repair with fistulotomy, multiple incisional hernias, a breast lift, tummy tuck, and also bilateral knee surgeries too. Patient also has history of intra-abdominal abscesses, small-bowel obstruction, and recent hernia repair here in the hospital. SOCIAL HISTORY: Lives with children. No ETOH, no IV drug abuse, and no history of alcohol intake too. FAMILY HISTORY: Contributory for diabetes, heart disease, and also kidney disease. REVIEW OF SYSTEMS: Negative for chest pain. No shortness of breath. Positive for nausea. No vomiting, no diarrhea, no constipation, no rectal bleeding. No hematochezia, no hematemesis. No diplopia. No weakness. No paresthesias, no hyperesthesias too either. PHYSICAL EXAMINATION: GENERAL: Patient is alert and oriented x3. VITAL SIGNS: Temperature is 98.4, pulse of 54, respiration of 20, blood pressure is 149/81, pulse oximetry 100% on room air. HEENT: Normocephalic, atraumatic. There is nystagmus present, lateral gaze nystagmus. NECK: No JVD present. CVS: S1 and S2 normal. Regular rate and rhythm. ABDOMEN: Nontender, nondistended. There is a small fistula present in the infraumbilical area, otherwise pendulous. EXTREMITIES: No clubbing, no cyanosis. Positive for trace edema. LABORATORY VALUES: Initial white count was 5.57, hemoglobin of 11.9, hematocrit of 35.7. Chemistry: Sodium of 145, potassium of 3.2, chloride of 108, BUN was 10, creatinine was 0.05. Coags were normal. Urine was also normal. IMAGING STUDIES: Initial brain CT was done, no acute abnormalities, unchanged incidental empty sella, no change from previous head CT in 2015. Echocardiogram has been ordered and carotid Dopplers have been ordered. Will continue to monitor the patient. Will start the patient on some meclizine 25 mg 3 times a day. Tomorrow, will reassess the patient. Further recommendations on clinical course. She will be put on tele monitoring while she is here and will also check her lipid profile in the morning. FINAL DIAGNOSES: 1. Vertigo, more than likely positional in nature. 2. Dizziness. 3. History of hypertension. 4. Diabetes. 5. History of hyperlipidemia. PLAN: Will restart all home medications. Further recommendations on clinical course. Job#: [id number]
[2018-02-19 00:51] LABS: CREATINE KINASE MB 1.6 ng/mL (0-5.0)
[2018-02-19 05:56] LABS: BASOPHILS % 0.9 % (0.0-1.0); EOSINOPHILS # (AUTO) 0.2 (0.0-0.4); HEMATOCRIT 36.2 % (34.2-44.1); HEMOGLOBIN 11.6 g/dL (12.0-16.0); LYMPHOCYTES # (AUTO) 1.6 (1.0-3.2); LYMPHOCYTES % 36.7 % (18.0-39.1); MEAN CORPUSCULAR HEMOGLOBIN 28.2 pg (28-32); MEAN CORPUSCULAR VOLUME 87.9 fL (81-99); MONOCYTES # (AUTO) 0.4 (0.2-0.8); MONOCYTES % 8.4 % (4.4-11.3); NEUTROPHILS # (AUTO) 2.1 (2.1-6.9); NEUTROPHILS % 49.8 % (38.7-80.0); PLATELET COUNT 116 x10e3/uL (140-360); RED BLOOD COUNT 4.12 x10e6/uL (3.6-5.1); RED CELL DISTRIBUTION WIDTH 13.2 % (11.7-14.4)
[2018-02-19 06:26] LABS: CREATINE KINASE MB 1.6 ng/mL (0-5.0)
[2018-02-19] MEDS ORDERED: MECLIZINE HCL 12.5 MG TAB PO PRN (06:45)
[2018-02-19 07:07] LABS: ALANINE AMINOTRANSFERASE 28 IU/L (0-55); ALKALINE PHOSPHATASE 69 IU/L (40-150); ANION GAP 14.7 mmol/L (8-16); BLOOD UREA NITROGEN 9 mg/dL (7-26); BUN/CREATININE RATIO 14 (6-25); CALCIUM 8.5 mg/dL (8.4-10.2); CARBON DIOXIDE 23 mmol/L (22-29); CHLORIDE 109 mmol/L (98-107); CREATININE, SERUM 0.66 mg/dL (0.57-1.11); EST GLOMERULAR FILTRATION RATE > 60 ML/MIN (60-); GLUCOSE 99 mg/dL (74-118); POTASSIUM 3.7 mmol/L (3.5-5.1); SODIUM 143 mmol/L (136-145)
[2018-02-19 07:20] LABS: CHOL/HDL RATIO 3.1 (3.0-3.6)
[2018-02-19] MEDS: PANTOPRAZOLE SOD 40 MG TABEC PO SCH ×2 (08:00→17:05)
[2018-02-19] MEDS: LISINOPRIL 20 MG TAB PO SCH (08:00)
[2018-02-19] MEDS: SODIUM CHLORIDE 0.9% 1000ML 1,000 ML IV SCH ×2 (08:00→18:23)
[2018-02-19] MEDS: HYDROCHLOROTHIAZIDE 25 MG TAB PO SCH (08:00)
[2018-02-19] MEDS: GLIMEPIRIDE 2 MG TAB PO SCH (08:00)
[2018-02-19] MEDS: GABAPENTIN 300 MG CAP PO SCH ×4 (09:00→20:49)
[2018-02-19] MEDS ORDERED: ATORVASTATIN 40 MG TAB PO SCH (09:00)
[2018-02-19] MEDS: ENOXAPARIN SOD INJ 40 MG/0.4 ML SYR SC SCH (17:06)
--- NOTE | 2018-02-19 17:54 | Consultation ---
DATE OF CONSULTATION: February 19, 2018 NEUROLOGY CONSULTATION HISTORY OF PRESENT ILLNESS: Ms. 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 On the morning of admission, the patient experienced the abrupt onset of severe dizziness, which is further described as a vertiginous sensation. The vertiginous sensation was associated with mild nausea and vomiting. These symptoms occurred intermittently, lasting for several seconds at a time. The symptoms are exacerbated by movement. Ms. Roman reports raising her head or turning to the right, in particular, exacerbate her symptoms. The symptoms resolve with sitting still. Ms. Roman does not report a visual field cut or other disturbance, facial droop, hemihypesthesia, or confusion. She does report mild dysarthria with possible expressive aphasia and left hemiparesis affecting the arm and leg. After the patient's symptoms persisted for a few hours, she was brought to the emergency center at [facility] for further evaluation. Upon arrival in the emergency center, the patient was afebrile with a blood pressure of 149/81 mmHg and pulse of 54 beats per minute. Her neurological examination was documented as being nonfocal. A CT of the brain without contrast was performed and did not show evidence of recent large territorial ischemia or hemorrhage. Ms. Roman was admitted to [facility] under observation status for further evaluation and treatment of her symptoms. Ms. Roman reports experiencing severe vertigo with nausea and vomiting approximately 1 year ago. The patient was hospitalized with these symptoms. Ultimately, she was diagnosed with benign paroxysmal positional vertigo. REVIEW OF SYSTEMS: Intentional weight loss of approximately 100 pounds, nausea, vomiting, dysarthria, possible expressive aphasia, weakness of the left arm and leg, impairment of gait and poor balance, vertigo. 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 PAST SURGICAL HISTORY: section times 2, Lap-Band, gastric bypass, bilateral knee replacements, hernia repair x5, breast reduction, abdominoplasty, tonsillectomy, cholecystectomy, appendectomy, bilateral cataract removal. PAST HOSPITALIZATIONS: Surgeries/procedures as listed, multiple wound infections, benign paroxysmal positional vertigo. FAMILY HISTORY: The patient's paternal and maternal grandparents are . Their medical histories are unknown. Patient's father is from coronary artery disease with myocardial infarction. Ms. Roman' mother is from natural causes. Ms. Roman had 2 brothers, both of whom are . One brother from colorectal cancer. The second brother from coronary artery disease with myocardial infarction. Ms. Roman has one sister who is from end-stage renal disease. She has 3 remaining sisters who are alive. The eldest sister has diabetes mellitus. The patient has 2 sons and 3 daughters, all of whom are living. Her eldest son has hypertension and hyperlipidemia. Her remaining children are healthy. SOCIAL HISTORY: The patient is . She is retired. 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 The patient does not report current or prior tobacco, alcohol, or recreational drug use. HOME MEDICATIONS 1. Norvasc 10 mg by mouth at bedtime daily. 2. Lisinopril/hydrochlorothiazide 1 tablet by mouth daily. 3. Atorvastatin 40 mg by mouth daily. 4. Glimepiride 2 mg by mouth daily. 5. Pioglitazone 30 mg by mouth as needed. 6. Pantoprazole 40 mg by mouth twice daily. 7. Metoclopramide 10 mg by mouth at bedtime daily. 8. Gabapentin 300 mg by mouth 4 times daily. ALLERGIES: VANCOMYCIN. NO KNOWN FOOD ALLERGIES. NO KNOWN ALLERGIES TO LATEX. NO KNOWN ALLERGIES TO IODINE OR OTHER CONTRAST MATERIALS. PHYSICAL EXAMINATION VITAL SIGNS: Height 59 inches. Weight 215 pounds. BMI 43.4 kg per meter squared. Blood pressure 122/60 mmHg. Pulse 55 beats per minute. Respiratory rate 18 breaths per minute. Oxygen saturation 97% on room air. GENERAL: The patient is awake and alert, does not appear distressed. Morbidly obese. HEENT: Normocephalic and atraumatic. Pupils are surgical. Moist mucous membranes. NECK: Supple. No appreciable thyromegaly. No appreciable carotid bruits. CARDIOVASCULAR: S1 and S2, regular rate and rhythm. No murmurs, rubs, or gallops. RESPIRATORY: Clear to auscultation bilaterally. No wheezes, rhonchi or rales. EXTREMITIES: The skin is warm and dry. No clubbing, cyanosis, or edema. The posterior tibial and dorsalis pedis pulses are 1+ and symmetric. SKIN: Venous stasis ulcerations over the distal forelegs. NEUROLOGIC MEMORY/ATTENTION: The patient is awake and alert, oriented to person, place, time, and situation. CRANIAL NERVES: Cranial nerve I: Not tested. Cranial nerves II, III, IV, and : Pupils are surgical. Extraocular movements intact. No nystagmus. Cranial nerve V: Sensation to light touch and pinprick is intact in the bilateral V1 through V3 distributions. Strength of the temporalis and masseter muscles is within normal limits. Cranial nerve VII: The face is symmetric as are all facial movements. Strength is within normal limits. Cranial nerve VIII: Hearing is diminished to finger rub on the right. Cranial nerves IX and X: The soft palate elevates equally and symmetrically. Cranial nerve XI: Normal strength of the bilateral sternocleidomastoid and trapezius muscles. Cranial nerve XII: The tongue protrudes midline and moves symmetrically from side to side. STRENGTH: Bulk is normal. Strength is 5/5 in the bilateral deltoids, biceps, triceps, wrist flexors and extensors, finger flexors and extensors, intrinsic hand muscles, hip flexors, knee flexors and extensors, ankle dorsiflexion and plantar flexion, and intrinsic foot muscles. Tone is normal. DTRs: Deep tendon reflexes are 1+ and symmetric at the triceps, biceps, brachioradialis. Deep tendon reflexes are trace and symmetric at patellas. Deep tendon reflexes are absent and symmetric at the Achilles. Plantar responses are flexor bilaterally. SENSATION: Sensation is intact to light touch and pinprick in both arms and both legs. CEREBELLAR: Oqlfzx-tfyi-wjmsiy and heel-adams movements are intact on the right without dysmetria or other impairment. There is mild dysmetria with ynzucg-mdxk-njdwaw and heel-adams movements on the left. GAIT: Deferred. SPEECH: Spontaneous speech is mildly dysarthric without appreciable aphasia. Repetition is intact. INVOLUNTARY MOVEMENTS: None. PRONATOR DRIFT: None. LABORATORY DATA: Sodium 143, potassium 3.7, chloride 109, carbon dioxide 23, anion gap 14.7. BUN 9, creatinine 0.66, estimated GFR greater than 60. QNR-bz-muyneacqfj ratio 14. Glucose 99, calcium 8.5, total bilirubin 0.6, AST 26, ALT 28, alkaline phosphatase 69, total protein 5.9, albumin 3.0, globulin 2.9, mtpyehe-rv-tabxgsvm ratio 1.0. Creatine kinase 136, 78, 79. CK-MB 3.20, 1.60, and 1.60. Troponin I 0.010, 0.006, 0.001. Total cholesterol 175, triglycerides 66, LDL cholesterol 106, HDL cholesterol 56. The CBC with differential and platelets reveals a white blood cell count of 4.28 with a normal differential. The hemoglobin and hematocrit are 11.6 and 36.2. The platelet count is 116. PT 13.2, INR 1.08, PTT 28.3. Urinalysis is unremarkable. DIAGNOSTIC STUDIES 1. Electrocardiogram, 02/18/2018: Sinus bradycardia at 52 beats per minute. 2. CT of the brain without contrast, 02/18/2018: On my review, there is no evidence of recent large territorial ischemia, hemorrhage, mass, or mass effect. ASSESSMENT AND PLAN: Ms. 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 In addition to these symptoms, the patient reports dysarthria with possible expressive aphasia, left hemiparesis, and impairment of balance and gait. The patient's neurological examination is significant for mild dysmetria with rmkxpx-xmzr-ugzycv and heel-adams movements on the left as well as mild dysarthria. Her laboratory data and other diagnostic studies have been reviewed and are documented above. Ms. Roman probably has benign paroxysmal positional vertigo. However, some of the symptoms endorsed by the patient (dysarthria, possible expressive aphasia, left hemiparesis) and the focal findings on her neurological examination suggest a possible stroke in the right middle cerebral artery distribution. Therefore, a complete stroke evaluation is recommended. 1. An MRI of the brain without contrast under maximum sedation will be ordered for further evaluation. 2. An echocardiogram has been ordered and is pending. 3. Bilateral carotid artery ultrasound with Doppler has been ordered and is pending. 4. Aspirin 325 mg by mouth daily for stroke prophylaxis will be prescribed. 5. At present, the patient's blood pressures are adequately controlled. Continue with current antihypertensive medications. Continue to monitor vital signs per unit protocol. 6. The patient's lipid panel is not at goal. The dose of her home medication, atorvastatin, will be increased to 80 mg by mouth at bedtime daily. 7. A hemoglobin A1c will be ordered. Continue with current oral hypoglycemic medications. 8. Physical therapy has been ordered and is pending. 9. GI prophylaxis with pantoprazole 40 mg by mouth twice daily before meals. DVT prophylaxis with Lovenox 40 mg subcutaneously daily. 10. Continue treatment with meclizine for probable benign paroxysmal positional vertigo. 11. Defer treatment of the remaining medical comorbidities to the primary and other services following the patient. Thank you for this consultation. I will continue to follow this patient while she remains in the hospital. Time Spent: 70 minutes Job#: [id number] RENNY NAVA
[2018-02-19] MEDS: METOCLOPRAMIDE HCL 10 MG TAB PO SCH (20:50)
[2018-02-19] MEDS: AMLODIPINE BESYLATE 10 MG TAB PO SCH (21:00)
[2018-02-20] VITALS (9 sets, daily range): BP systolic 110–176; BP diastolic 55–73
[2018-02-20] MEDS: SODIUM CHLORIDE 0.9% 1000ML 1,000 ML IV SCH (05:21)
[2018-02-20 06:01] LABS: ANION GAP 9.5 mmol/L (8-16); BLOOD UREA NITROGEN 9 mg/dL (7-26); BUN/CREATININE RATIO 15 (6-25); CALCIUM 7.9 mg/dL (8.4-10.2); CARBON DIOXIDE 27 mmol/L (22-29); CHLORIDE 110 mmol/L (98-107); CREATININE, SERUM 0.59 mg/dL (0.57-1.11); EST GLOMERULAR FILTRATION RATE > 60 ML/MIN (60-); GLUCOSE 83 mg/dL (74-118); POTASSIUM 3.5 mmol/L (3.5-5.1); SODIUM 143 mmol/L (136-145)
[2018-02-20] MEDS: PANTOPRAZOLE SOD 40 MG TABEC PO SCH ×2 (07:30→16:12)
[2018-02-20] MEDS ORDERED: DEXTROSE 5%/0.45% SOD CHL 1,000 ML IV SCH (08:45)
[2018-02-20] MEDS: GABAPENTIN 300 MG CAP PO SCH ×3 (09:00→17:18)
[2018-02-20] MEDS ORDERED: ASPIRIN 325 MG TAB EC PO SCH (09:00)
[2018-02-20] MEDS: LISINOPRIL 20 MG TAB PO SCH (09:00)
[2018-02-20] MEDS: HYDROCHLOROTHIAZIDE 25 MG TAB PO SCH (09:00)
[2018-02-20] MEDS: GLIMEPIRIDE 2 MG TAB PO SCH (09:00)
[2018-02-20] MEDS ORDERED: SODIUM CHLORIDE 0.9% 500ML 500 ML ONE (10:36)
--- NOTE | 2018-02-20 12:30 | Diagnostic Imaging Report ---
Exam: Brain MRI without IV contrast History: Dizziness, evaluate for stroke Comparison studies: Head CT 02/18/2018, 12/06/2014 and 12/03/2007. Technique: Sagittal and axial T2 FS, axial DWI, axial T2*GRE, axial T1 FLAIR and axial coronal T2 FLAIR. Intravenous contrast: None Findings: Scalp: Normal in signal. No masses. Bone marrow: Normal in signal intensity. Brain sulci: Appropriate for age. Ventricles: Normal in size. No hydrocephalus. Extra axial spaces: No mass, no fluid collection. Parenchyma: No mass, hemorrhage or acute ischemia. A few small scattered foci of T2 FLAIR hyperintensity in the bifrontal white matter are nonspecific but most compatible with chronic microvascular ischemic changes. Suprasellar region: Unchanged incidental mildly expanded CSF filled sella. Craniocervical junction: Patent foramen magnum. No Chiari malformation. Vessels: Normal flow-voids in the arteries and sinuses. Incidental findings: Bilateral intraocular lens or placement. IMPRESSION: 1. No acute ischemia or other acute intracranial abnormalities. 2. Mild supratentorial chronic microvascular ischemic changes. 3. Unchanged incidental empty sella. Signed by: Dr. Joseph Angelo M.D. on 02/20/2018 12:26 PM
[2018-02-20] MEDS ORDERED: LIDOCAINE HCL 2% LOCAL INJ 5 ML SDV VIAL INJ ONE (14:11)
[2018-02-20] MEDS ORDERED: PROPOFOL IV EMULSION 10 MG/ML 20 ML VIAL ONE (14:11)
[2018-02-20] MEDS: ENOXAPARIN SOD INJ 40 MG/0.4 ML SYR SC SCH (17:06)
[2018-02-20] MEDS ORDERED: MIDAZOLAM HCL 2 MG/2 ML VIAL ONE (17:27)
[2018-02-20] MEDS ORDERED: ATORVASTATIN 40 MG TAB PO SCH (21:00)
[2018-02-21] MEDS ORDERED: PIOGLITAZONE HCL 15 MG TAB PO SCH (09:00)
== END 2018-02-20 18:25 | disposition home or self-care (01) ==
LOC: ER 13:39 → ERHOLD 15:09 → IMCU 16:50
PROVIDERS: ADMIT Family Medicine; ATTEND Family Medicine
DX: R42 Dizziness and giddiness (principal); I10 Essential (primary) hypertension; E11.9 Type 2 diabetes mellitus without complications; E78.5 Hyperlipidemia, unspecified; E66.01 Morbid (severe) obesity due to excess calories; R47.1 Dysarthria and anarthria; Z68.41 Body mass index [BMI] 40.0-44.9, adult; Z88.1 Allergy status to other antibiotic agents; Z86.73 Personal history of transient ischemic attack (TIA), and cerebral infarction without residual deficits; G81.94 Hemiplegia, unspecified affecting left nondominant side
CPT/HCPCS: 36415 ×2; 70450; 70551; 80048; 80053 ×2; 80061; 81001; 82550 ×2; 82553 ×2; 82948 ×3; 83036; 84436; 84443; 84479; 84484 ×2; 85025 ×2; 85610; 85730; 87086; 93005; 93306; 93880; 97116; 97161; 99284; G0378 ×3; G8978; G8979; G8980; J1650 ×2; J2001; J2250; J7030 ×3; J7040 ×2; S0164 ×2

== ENCOUNTER → 2018-06-30 | Outpatient (CLI) | payer MEDICARE ==
--- NOTE | 2018-06-30 12:00 | Diagnostic Imaging Report ---
Radiographs of the right shoulder and right humerus HISTORY: Pain COMPARISON: None available. FINDINGS: Bones: No acute displaced fracture. Osseous alignment is within normal limits. Joints: Scattered degenerative change. No osseous erosion. Soft tissues: The soft tissues appear unremarkable. IMPRESSION: Scattered degenerative change. No osseous erosion. Signed by: Dr. Collin Kuhn M.D. on 06/30/2018 11:57 AM
== END ==
LOC: RAD 11:13
PROVIDERS: ATTEND Family Medicine
DX: S40.011A Contusion of right shoulder, initial encounter (principal)

== ENCOUNTER → 2018-07-07 | Outpatient (CLI) | payer MEDICARE ==
--- NOTE | 2018-07-07 16:55 | Diagnostic Imaging Report ---
Examination: CT BRAIN WITHOUT CONTRAST History:Headaches. Fall with head injury. Comparison studies:Brain MRI performed February 20, 2018 Technique: Axial images were obtained from the skull base to the vertex. Coronal and sagittal images reconstructed from the axial data. Dose modulation, iterative reconstruction, and/or weight based adjustment of the mA/kV was utilized to reduce the radiation dose to as low as reasonably achievable. Intravenous contrast: None Findings: Scalp: No abnormalities. Bones: No fractures, blastic or lytic lesions. Brain sulci: Appropriate for age. Ventricles: Normal in size and configuration. No hydrocephalus. Extra-axial space: No abnormalities. Parenchyma: A 5 mm dilated perivascular space is seen along the inferior margin of the left putamen. There are subtle patchy areas of hypoattenuation in the periventricular and subcortical white matter, nonspecific. No masses, hemorrhage, or acute cortical based vascular insults.. Sellar/suprasellar region: CSF filled and expanded sella, unchanged. Craniocervical junction: Patent foramen magnum. No Chiari one malformation. Incidental findings: None. Impression: 1. No acute intracranial abnormalities. No change when compared to prior brain MRI performed February 20, 2018 and when accounting for differences in technique. 2. Unchanged mild chronic microvascular ischemic change. 3. Unchanged empty sella. Signed by: Dr. Adali Priest M.D. on 07/07/2018 4:51 PM
== END ==
LOC: CT 15:19
PROVIDERS: ATTEND Family Medicine
DX: S09.90XA Unspecified injury of head, initial encounter (principal)
CPT/HCPCS: 70450

== ENCOUNTER → 2018-07-15 | Day surgery (SDC) | payer MEDICARE ==
[2018-07-14 12:02] LABS: BASOPHILS % 0.5 % (0.0-1.0); EOSINOPHILS # (AUTO) 0.1 (0.0-0.4); HEMATOCRIT 35.3 % (34.2-44.1); HEMOGLOBIN 11.7 g/dL (12.0-16.0); LYMPHOCYTES # (AUTO) 1.5 (1.0-3.2); LYMPHOCYTES % 28.1 % (18.0-39.1); MEAN CORPUSCULAR HGB CONC 33.1 g/dL (31-35); MEAN CORPUSCULAR VOLUME 87.4 fL (81-99); MONOCYTES # (AUTO) 0.5 (0.2-0.8); MONOCYTES % 9.8 % (4.4-11.3); NEUTROPHILS # (AUTO) 3.3 (2.1-6.9); NEUTROPHILS % 59.4 % (38.7-80.0); PLATELET COUNT 203 x10e3/uL (140-360); RED BLOOD COUNT 4.04 x10e6/uL (3.6-5.1); RED CELL DISTRIBUTION WIDTH 13.2 % (11.7-14.4)
[~2018-07-15] MED LIST changes: +FENTANYL CITRATE/PF 100MCG/2 ML INJ ONE; +LIDOCAINE HCL 2% LOCAL INJ 5 ML SDV VIAL INJ ONE; +MIDAZOLAM HCL 2 MG/2 ML VIAL ONE; +PROPOFOL IV EMULSION 10 MG/ML 50 ML VIAL ONE
--- NOTE | 2018-07-15 18:02 | Operative Report ---
DATE OF PROCEDURE: July 15, 2018 REFERRING PHYSICIAN: Dr. Michelle Silverman. PROCEDURE PERFORMED: Esophagogastroduodenoscopy with esophageal dilatation. INDICATIONS FOR PROCEDURE: Dysphagia. MEDICATION: Patient was done under MAC. Please see anesthesiologist's note. PROCEDURE: With patient in left lateral decubitus position, flexible fiberoptic Olympus gastroscope was introduced into the esophagus under direct visualization without any difficulty. The esophagus appeared to be within normal limits. The scope was then advanced into the stomach and patient is status post Michele-en-Y. Anastomosis was intact. Esophagus was then dilated to size 16 Savory over a wire and subsequently to size 52-Samoan Rausch. Patient tolerated the procedure well. IMPRESSION 1. Esophagus dilated to size 16 Savory over a wire and size 52-Samoan Rausch. 2. Status post Michele-en-Y, anastomosis intact. PLAN: Continue on Protonix 40 mg 1 p.o. a.c. b.i.d. Job#: [id number] SANDRA cc:MICHELLE SILVERMAN MD
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
--- OUTSIDE RECORDS SUMMARY | 2018-07-17 13:43 | XMS REPORT | Clinical Summary ---
Author Author [facility] Organization [facility] Address Unknown Phone Unavailable Care Team Providers Care Sap Pp Consultant Name Role Phone Quinten Silverman MD PCP Allergies No Known Allergies Medications End Date Status Medication Sig Dispensed Refills Start Date 08/27/2017 diazePAM (VALIUM) 5 MG Take 1 tablet 1 tablet 0 tablet (5 mg total) 8 by mouth daily as needed for anxiety for up to 1 day. 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 Office Visit General Surgery Jalil Zepeda MD Abdominal fistula (Primary Dx) 08/26/2017 Orders Only General Surgery after 07/16/2017 Family History Medical History Relation Name Comments Colon cancer Brother Arthritis Father Diabetes Father Heart disease Father Arthritis Mother Relation Name Status Comments Brother Father Mother Social History Date Tobacco Use Types Packs/Day Years Used Never Smoker Smokeless Tobacco: Never Used Alcohol Use Drinks/Week oz/Week Comments No Sex Assigned at Date Recorded Not on file Industry Job Start Date Occupation Not on file Not on file Not on file Travel End Travel History Travel Start No recent travel history available. Last Filed Vital Signs Time Taken Vital Sign Reading 08/31/2017 12:50 PM ADMINISTRATIVE SERVICES ASSISTANT Blood Pressure 110/65 08/31/2017 12:50 PM ADMINISTRATIVE SERVICES ASSISTANT Pulse 69 08/31/2017 12:50 PM ADMINISTRATIVE SERVICES ASSISTANT Temperature 36.8 C (98.2 F) - Respiratory Rate - - Oxygen Saturation - - Inhaled Oxygen - Concentration 08/26/2017 11:13 AM ADMINISTRATIVE SERVICES ASSISTANT Weight 96.2 kg (212 lb) 08/26/2017 11:13 AM ADMINISTRATIVE SERVICES ASSISTANT Height 149.9 cm (4' 11") 08/26/2017 11:13 AM ADMINISTRATIVE SERVICES ASSISTANT Body Mass Index 42.82 Plan of Treatment Health Maintenance Due Date Last Done Comments BREAST CANCER SCREENING 10/25/1999 COLON CANCER SCREENING 10/25/1999 SHINGLES VACCINES (1 of 10/25/1999 2) PNEUMOCOCCAL-13 2014 INFLUENZA VACCINE 03/01/2018 PNEUMOCOCCAL Completed 05/26/2016 POLYSACCHARIDE VACCINE AGE 65 AND OVER Procedures Comments Procedure Name Priority Date/Time Associated Diagnosis [place] SINUS TRACT INJECTION Routine 08/31/2017 Abdominal fistula FISTULOGRAM 9:45 AM ADMINISTRATIVE SERVICES ASSISTANT after 07/16/2017 Results * [place] Sinus Tract Injection Fistulogram (08/31/2017 9:45 AM ADMINISTRATIVE SERVICES ASSISTANT) Narrative Performed At EXAMINATION:[place] SINUS TRACT INJECTION FISTULOGRAM [facility] CLINICAL HISTORY:K63.2 Fistula of intestine, abdominal Fistula [...] of benefit. IMPRESSION: Very small sinus tract [id number] Procedure Note Interface, Radiology Results Incoming - 08/31/2017 10:33 AM ADMINISTRATIVE SERVICES ASSISTANT EXAMINATION: [place] SINUS TRACT INJECTION FISTULOGRAM CLINICAL [...] of benefit. IMPRESSION: Very small sinus tract [id number] Performing Organization Address City/State/Zipcode Phone Number [facility] [address] [place] [address] after 07/16/2017 Insurance Payer Benefit Subscriber ID Type Phone Address Plan / Group MEDICARE MEDICARE xxxxxxxxxx Medicare [place], [place] PART A AND B AARP AARP xxxxxxxxxxx Commercial SUPPLEMENT Advance Directives Patient has advance care planning documents on file. For more information, freddie talbot contact: Asa Kaufman [address] [place] [address]
--- OUTSIDE RECORDS SUMMARY | 2018-07-17 13:44 | XMS REPORT | Summary of Care ---
Author Author Eliecer Herrera M.D. Organization Unknown Address Unknown Phone Unavailable Care Team Providers Care Ferry Captain Name Role Phone Eliecer Herrera M.D. Unavailable Unavailable RUMA HENDERSON, MICHELLE Unavailable Unavailable Unavailable Unavailable Functional Status Name Dates Details Functional status health issues are not documented Status: Name Dates Details Cognitive status health issues are not documented Status: Problems Name Dates Details Acid reflux disease (530.81, K21.9) Status: Active History of Intra-abdominal collection (789.59, R18.8) Status: Resolved Medications Name Dates Details Medications not documented Allergies and Adverse Reactions Name Dates Details Allergy history not documented Status: Past Medical History Name Dates Details History of Intra-abdominal collection (789.59, R18.8) Status: Resolved Procedures Procedure Dates Details History of Abscess incision and drainage Completed Immunization Name Dates Details Immunizations not documented Social History Name Dates Details - Status: Name Dates Details Never smoker Vital Signs Date Test Result Details [id number] BP Systolic 133 mm[Hg] Status: Comments: Location: LUE; Position: Sitting BP Diastolic 74 mm[Hg] Status: Comments: Location: LUE; Position: Sitting Height 59 in Status: Weight 202 lb Status: Body Mass Index Calculated 40.8 kg/m2 Status: Body Surface Area Calculated 1.85 m2 Status: Temperature 96.8 f Status: Comments: Method: Oral Heart Rate 68 /min Status: Results Date Description Value Details Results not documented Plan of Care Name Dates Details Planned Observations Planned Goals not documented Interventions Provided Plan* Return to clinic as needed Instructions Name Dates Details Instructions not documented Encounters Appointment; Eliecer Herrera M.D. Encounter Diagnosis: Problem not documented On: 08-Jun-2016 9:30 Appointment; Eliecer Herrera M.D. Encounter Diagnosis: Problem not documented On: 09-Jul-2016 9:00 Appointment; Eliecer Herrera M.D. Encounter Diagnosis: Problem not documented On: 15-Oct-2016 9:00 Appointment; Eliecer Herrera M.D. Encounter Diagnosis: Problem not documented On: 25-Nov-2017 10:15 Appointment; Eliecer Herrera M.D. Encounter Diagnosis: Problem not documented On: 13-Dec-2017 13:15 Appointment; Eliecer Herrera M.D. Encounter Diagnosis: Problem not documented On: 27-Jan-2018 8:30 Appointment; Eliecer Herrera M.D. Encounter Diagnosis: Problem not documented On: 31-Mar-2018 9:00
== END | disposition home or self-care (01) ==
LOC: OR 10:28
PROVIDERS: ATTEND Internal Medicine Gastroenterology
DX: K22.2 Esophageal obstruction (principal); R13.10 Dysphagia, unspecified; Z98.84 Bariatric surgery status; Z88.1 Allergy status to other antibiotic agents; E78.00 Pure hypercholesterolemia, unspecified; E11.42 Type 2 diabetes mellitus with diabetic polyneuropathy; Z86.73 Personal history of transient ischemic attack (TIA), and cerebral infarction without residual deficits; Z82.49 Family history of ischemic heart disease and other diseases of the circulatory system; Z83.3 Family history of diabetes mellitus; Z80.0 Family history of malignant neoplasm of digestive organs; E66.9 Obesity, unspecified; I10 Essential (primary) hypertension; K21.9 Gastro-esophageal reflux disease without esophagitis; Z68.36 Body mass index [BMI] 36.0-36.9, adult; Z79.84 Long term (current) use of oral hypoglycemic drugs; Z01.812 Encounter for preprocedural laboratory examination
CPT/HCPCS: 36415 ×2; 43249; 82948; 85025; 93005; J2001; J2250; 43450

== ENCOUNTER 2019-02-17 20:32 | Emergency (ER) | payer MEDICARE ==
[~2019-02-17] VITALS: Ht 149.9 cm; Wt 90.3 kg
[~2019-02-17 20:32] MED LIST changes: -FENTANYL CITRATE/PF 100MCG/2 ML INJ ONE; -LIDOCAINE HCL 2% LOCAL INJ 5 ML SDV VIAL INJ ONE; -MIDAZOLAM HCL 2 MG/2 ML VIAL ONE; -PROPOFOL IV EMULSION 10 MG/ML 50 ML VIAL ONE
--- OUTSIDE RECORDS SUMMARY | 2019-02-17 20:36 | XMS REPORT | Clinical Summary ---
Author Author [facility] Organization [facility] Address Unknown Phone Unavailable Care Team Providers Care Grinder Setup Operator Name Role Phone Quinten Silverman MD PCP Allergies No Known Allergies Medications No known medications Active Problems No known active problems Family History Medical History Relation Name Comments [...] travel history available. Last Filed Vital Signs Not on file Plan of Treatment Health Maintenance Due Date Last Done Comments BREAST CANCER SCREENING 10/25/1999 COLONOSCOPY SCREENING 10/25/1999 SHINGLES VACCINES (#1) 10/25/1999 65+ PNEUMOCOCCAL VACCINE 2014 05/26/2016 (2 of 2 - PPSV23) INFLUENZA VACCINE 03/01/2019 Results Not on fileafter 02/16/2018 Insurance Type Payer Benefit Subscriber ID Effective Phone Address Plan / Dates Group Medicare MEDICARE MEDICARE xxxxxxxxxx 2014-P ASA, PART A AND resent [place] B Commercial AARP AARP xxxxxxxxxxx 2017-P SUPPLEMENT resent Advance Directives Patient has advance care planning documents on file. For more information, freddie talbot contact: Asa Kaufman [address] [place] [id number]
--- OUTSIDE RECORDS SUMMARY | 2019-02-17 20:37 | XMS REPORT | Continuity of Care Document ---
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 History Date Source Social History TypeResponse Smoking Status Never smoker; Exposure to Tobacco Smoke None; Cigarette Smoking Last 365 Days No; Reg Smoking Cessation Counseling No entered on: 01/05/18 01/05/2018 [facility] Social History TypeResponse Smoking Status Never smoker; Exposure to Tobacco Smoke None; Cigarette Smoking Last 365 Days No; Reg Smoking Cessation Counseling No entered on: 05/27/17 05/27/2017 [facility] Social History TypeResponse Smoking Status Never smoker; Exposure to Tobacco Smoke None; Cigarette Smoking Last 365 Days No; Reg Smoking Cessation Counseling No 05/27/2017 [facility] Family History No Data Provided for This Section Advance Directives No Data Provided for This Section Functional Status No Data Provided for This Section
--- NOTE | 2019-02-17 23:15 | Diagnostic Imaging Report ---
EXAM: Right Lower Extremity Duplex Ultrasound INDICATION: Lower extremity pain and edema. Deep venous thrombosis. COMPARISON: None. TECHNIQUE: Leigh scale, color Doppler and spectral waveform analysis of the right lower extremity deep venous system was performed. FINDINGS: Common Femoral: Fully compressible with normal spontaneous waveforms. Proximal Greater Saphenous: Fully compressible. Femoral: Fully compressible with normal spontaneous waveforms. Normal response to augmentation. Proximal Deep Femoral: Normal spontaneous waveforms. Popliteal: Fully compressible with normal spontaneous waveforms. IMPRESSION: No evidence of deep venous thrombosis above the right calf. Signed by: Dr. Callum Coronado M.D. on 02/17/2019 11:11 PM
[2019-02-17 23:40] VITALS: BP 162/77
[2019-03-27] MEDS ORDERED: SUCRALFATE1 GM PO (10:17)
== END 2019-02-17 23:42 | disposition home or self-care (01) ==
LOC: FSED 20:32
DX: M79.661 Pain in right lower leg (principal); M79.89 Other specified soft tissue disorders
CPT/HCPCS: 93971; 99283

== ENCOUNTER 2019-02-21 17:36 | Emergency (ER) | payer MEDICARE ==
[~2019-02-21] VITALS: Ht 149.9 cm; Wt 90.3 kg
[~2019-02-21 17:36] MED LIST changes: -SUCRALFATE1 GM PO
--- OUTSIDE RECORDS SUMMARY | 2019-02-21 17:39 | XMS REPORT | Clinical Summary ---
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 For more information, freddie talbot contact: Asa Kaufman [address] [place] [phone]
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
[2019-02-21 20:14] LABS: BASOPHILS % 0.5 % (0.0-1.0); EOSINOPHILS # (AUTO) 0.1 (0.0-0.4); HEMATOCRIT 36.4 % (34.2-44.1); HEMOGLOBIN 11.6 g/dL (12.0-16.0); LYMPHOCYTES # (AUTO) 1.1 (1.0-3.2); LYMPHOCYTES % 17.6 % (18.0-39.1); MEAN CORPUSCULAR HEMOGLOBIN 28.4 pg (28-32); MEAN CORPUSCULAR HGB CONC 31.9 g/dL (31-35); MONOCYTES # (AUTO) 0.6 (0.2-0.8); MONOCYTES % 9.2 % (4.4-11.3); NEUTROPHILS # (AUTO) 4.3 (2.1-6.9); NEUTROPHILS % 71.4 % (38.7-80.0); PLATELET COUNT 175 x10e3/uL (140-360); RED BLOOD COUNT 4.09 x10e6/uL (3.6-5.1); RED CELL DISTRIBUTION WIDTH 12.8 % (11.7-14.4)
[2019-02-21 20:32] LABS: ANION GAP 12.8 mmol/L (8-16); CALCIUM 9.3 mg/dL (8.4-10.2); CREATININE, SERUM 1.11 mg/dL (0.57-1.11); POTASSIUM 3.8 mmol/L (3.5-5.1)
[2019-02-21] MEDS ORDERED: SODIUM CHLORIDE 0.9% 100 ML 100 ML ONE (21:12)
[2019-02-21] MEDS ORDERED: IOPAMIDOL 370 MG/ML 200 ML INFUS..BTL INJ ONE (21:13)
--- NOTE | 2019-02-21 22:06 | Diagnostic Imaging Report ---
EXAM: CT Chest WITH contrast (PE Protocol) INDICATION: ^PE protocol COMPARISON: None TECHNIQUE: Chest was scanned utilizing a multidetector helical scanner from the lung apex through the level of the diaphragm after administration of IV contrast. Thin section reconstructions were obtained with special concentration on the pulmonary arteries. Coronal and sagittal reformations were obtained. Dose modulation, iterative reconstruction, and/or weight based adjustment of the mA/kV was utilized to reduce the radiation dose to as low as reasonably achievable. Pulmonary embolism protocol was performed. IV CONTRAST: 100 mL of Omnipaque 350 COMPLICATIONS: None RADIATION DOSE: Total DLP: 572.63 mGy*cm Estimated effective dose: (DLP x 0.014 x size factor) mSv CTDIvol has been reviewed. It is below the limits set by the Radiation Protocol Committee (RPC). FINDINGS: LINES/ TUBES: None. LUNGS AND AIRWAYS: No filling defect is identified within the pulmonary arteries to the segmental level. The lungs are unremarkable. Right lower lobe calcified granuloma. Airways are normal. PLEURA: The pleural spaces are clear. HEART AND MEDIASTINUM: The visualized thyroid gland is normal. No mediastinal, hilar or axillary lymphadenopathy. The heart is normal in size.. There is no pericardial effusion. . Main pulmonary artery measures 3.3 cm in diameter and the ascending aorta measures 3.1 cm. Atherosclerotic calcification of LAD. UPPER ABDOMEN: Cholecystectomy. Evidence of gastric bypass surgery. Atrophic pancreas. BONES: Mild thoracic spine scoliosis with multilevel advanced degenerative changes. SOFT TISSUES: Unremarkable. IMPRESSION: No pulmonary emboli. Signed by: Dr. Rigo Briseno MD on 02/21/2019 10:03 PM
[2019-02-21 23:28] VITALS: BP 119/28
[2019-03-27] MEDS ORDERED: SUCRALFATE1 GM PO (10:17)
== END 2019-02-21 22:30 | disposition home or self-care (01) ==
LOC: ER 17:36
DX: M79.661 Pain in right lower leg (principal); R60.9 Edema, unspecified; I10 Essential (primary) hypertension; E11.9 Type 2 diabetes mellitus without complications; E78.5 Hyperlipidemia, unspecified; Z98.84 Bariatric surgery status
CPT/HCPCS: 36415; 71260; 80048; 85025; 99284; Q9967

== ENCOUNTER → 2019-02-21 | Outpatient (CLI) | payer MEDICARE ==
[~2019-02-21] MED LIST changes: +SUCRALFATE1 GM PO
== END ==
LOC: LAB 09:53
PROVIDERS: ATTEND Family Medicine
DX: R60.9 Edema, unspecified (principal)
CPT/HCPCS: 36415; 85379

== ENCOUNTER → 2019-03-20 | Outpatient (CLI) | payer MEDICARE ==
[~2019-03-20] MED LIST changes: +SUCRALFATE1 GM PO
--- NOTE | 2019-03-20 09:29 | Diagnostic Imaging Report ---
Abdominal ultrasound, limited. History: Abdominal wall bulge. Comparison: CT abdomen 08/12/2017. Discussion: Transverse and longitudinal sonographic images of the anterior abdominal wall were obtained. No findings were seen in the right lower quadrant abdominal wall. In the midline of the anterior abdomen, a subcutaneous oval anechoic structure is present measuring 1.4 x 1.0 x 1.3 cm. IMPRESSION: Small benign-appearing subcutaneous cyst in the mid line of the anterior abdominal wall. Signed by: Geovanny Hutchinson on 03/20/2019 9:26 AM
--- NOTE | 2019-03-20 09:55 | Diagnostic Imaging Report ---
Renal ultrasound, 03/20/2019. History: UTI. Discussion: Transverse and longitudinal images of the kidneys were obtained demonstrating normal renal sizes and echogenicities. There is no evidence of hydronephrosis, mass, or renal calculus. The right kidney measures 9.7 cm and the left kidney measures 9.8 cm in length. The urinary bladder is unremarkable. Bladder volume measures 26 mL. There is no evidence of free fluid. IMPRESSION: Normal renal ultrasound. Signed by: Geovanny Hutchinson on 03/20/2019 9:52 AM
== END ==
LOC: US 07:47
PROVIDERS: ATTEND Family Medicine
DX: N39.0 Urinary tract infection, site not specified (principal); R35.0 Frequency of micturition; R19.00 Intra-abdominal and pelvic swelling, mass and lump, unspecified site
CPT/HCPCS: 76705; 76770; 76857

== ENCOUNTER → 2019-04-05 | Day surgery (SDC) | payer MEDICARE ==
[2019-03-27 11:18] LABS: BASOPHILS % 0.9 % (0.0-1.0); EOSINOPHILS # (AUTO) 0.1 (0.0-0.4); EOSINOPHILS % 1.9 % (0.0-6.0); HEMATOCRIT 35.8 % (34.2-44.1); HEMOGLOBIN 11.3 g/dL (12.0-16.0); LYMPHOCYTES # (AUTO) 1.3 (1.0-3.2); LYMPHOCYTES % 28.8 % (18.0-39.1); MEAN CORPUSCULAR HEMOGLOBIN 28.2 pg (28-32); MEAN CORPUSCULAR HGB CONC 31.6 g/dL (31-35); MEAN CORPUSCULAR VOLUME 89.3 fL (81-99); MONOCYTES # (AUTO) 0.5 (0.2-0.8); MONOCYTES % 10.8 % (4.4-11.3); NEUTROPHILS # (AUTO) 2.7 (2.1-6.9); PLATELET COUNT 178 x10e3/uL (140-360); RED BLOOD COUNT 4.01 x10e6/uL (3.6-5.1); RED CELL DISTRIBUTION WIDTH 13.5 % (11.7-14.4)
[~2019-04-05] MED LIST changes: +FENTANYL CITRATE/PF 100MCG/2 ML INJ ONE; +GLUCAGON FOR INJ 1 MG VIAL ONE; +HYOSCYAMINE 0.125 MG TAB ONE; +METOCLOPRAMIDE HCL 10 MG/2ML VIAL ONE; +MIDAZOLAM HCL 2 MG/2 ML VIAL ONE; +PROPOFOL IV EMULSION 10 MG/ML 50 ML VIAL ONE
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
--- OUTSIDE RECORDS SUMMARY | 2019-04-05 06:45 | XMS REPORT | Clinical Summary ---
Author Author [facility] [place] [facility] Address Unknown Phone Unavailable Care Team Providers Care Vessel Ordinary Seaman Name Role Phone Quinten Silverman MD PCP Allergies No Known Allergies Medications No known medications Active Problems No known active problems Family History Medical History Relation Name Comments Colon cancer Brother Arthritis Father Diabetes Father Heart disease Father Arthritis Mother Relation Name Status Comments Brother Father Mother Social History Date Tobacco Use Types Packs/Day Years Used Never Smoker Smokeless Tobacco: Never Used Drinks/Week oz/Week Comments Alcohol Use No Sex Assigned at Date Recorded Not [...] INFLUENZA VACCINE 03/01/2019 Results Not on fileafter 04/04/2018 Insurance Type Payer Benefit Subscriber ID Effective Phone Address Plan / Dates Group Medicare MEDICARE MEDICARE xxxxxxxxxx [id number] ASA, PART A AND resent [place] B Commercial AARP AARP xxxxxxxxxxx [id number] SUPPLEMENT resent Advance Directives For more information, please contact: [phone] Patient Venue Manager Explanation Type Date Recorded Advance Directives, Living Will and Medical Power of Community Development Director
[2019-04-05 10:10] VITALS: BP 127/62
--- NOTE | 2019-04-05 12:56 | Operative Report ---
DATE OF PROCEDURE: 04/05/2019 SURGEON: Cristo Ferreira MD PROCEDURES: EGD with esophageal dilatation and colonoscopy. INDICATIONS FOR EGD: Dysphagia to solids. INDICATIONS FOR COLONOSCOPY: Surveillance colonoscopy, personal history of colon polyps. MEDICATIONS: The patient was done under MAC, please see anesthesiologist's note. PROCEDURE IN DETAIL: With the patient in left lateral decubitus position, a flexible fiberoptic Olympus gastroscope was introduced into the esophagus under direct visualization without any difficulty. There was some patchy erythema noted in distal esophagus. A mild stricture was noted at the GE junction that was dilated to size 52-Kenyan Rausch. The scope was then advanced with ease into the stomach. The patient is status post Michele-en-Y, anastomosis was intact. There was a minute nodule of the anastomosis that was biopsied. The efferent loop was patent. The scope was subsequently withdrawn and the patient tolerated the procedure well. IMPRESSION: 1. Distal esophagitis, mild. 2. Mild stricture at GE junction dilated to size 52-Kenyan Rausch. 3. Status post Michele-en-Y, anastomosis intact. Enteric loop patent. No evidence of marginal ulcers. Minute nodule, anastomosis, biopsied. PLAN: Follow up histology. Continue Reglan 10 mg one p.o. at bedtime and Protonix 40 mg one p.o. before meals b.i.d. and Carafate 1 g p.o. before meals t.i.d. and at bedtime. The patient was then turned around and after adequate lubrication of the anal canal, a flexible fiberoptic Olympus colonoscope was inserted into the rectum with ease and advanced all the way to the cecum. The scope was then withdrawn slowly. Mucosa overlying the cecum, ascending colon, transverse, descending, and sigmoid grossly appeared to be within normal limits other than for diverticular disease. The scope was then retroflexed into the distal rectum and the area around the dentate line appeared to be within normal limits. The scope was then straightened out, it was subsequently withdrawn, and the patient tolerated the procedure well. IMPRESSION: Diverticulosis. PLAN: Continue high-fiber, low-fat diet. Continue high-fiber supplement. The patient might benefit from a followup colonoscopy in 5 years. Cristo Ferreira MD [facility] Lara: 04/05/2019 10:05:57 /[id number] cc: Quinten Silverman MD
== END | disposition home or self-care (01) ==
LOC: OR 06:40
PROVIDERS: ATTEND Internal Medicine Gastroenterology
DX: K22.2 Esophageal obstruction (principal); K20.8 Other esophagitis; K31.89 Other diseases of stomach and duodenum; K21.9 Gastro-esophageal reflux disease without esophagitis; K44.9 Diaphragmatic hernia without obstruction or gangrene; K57.30 Diverticulosis of large intestine without perforation or abscess without bleeding; K59.00 Constipation, unspecified; Z98.84 Bariatric surgery status; G62.9 Polyneuropathy, unspecified; E11.9 Type 2 diabetes mellitus without complications; G47.33 Obstructive sleep apnea (adult) (pediatric); E78.5 Hyperlipidemia, unspecified; D64.9 Anemia, unspecified; I10 Essential (primary) hypertension; R42 Dizziness and giddiness; Z88.1 Allergy status to other antibiotic agents; Z01.810 Encounter for preprocedural cardiovascular examination; Z01.812 Encounter for preprocedural laboratory examination; Z79.84 Long term (current) use of oral hypoglycemic drugs; Z68.36 Body mass index [BMI] 36.0-36.9, adult; Z86.73 Personal history of transient ischemic attack (TIA), and cerebral infarction without residual deficits
CPT/HCPCS: 36415 ×2; 43239; 43450; 45378; 82948; 85025; 88305; 93005; J1610; J2250; J2704; J2765; J3010; 88312

== ENCOUNTER 2020-04-16 14:47 | Emergency (ER) | payer MEDICARE ==
[~2020-04-16] VITALS: Ht 149.9 cm; Wt 90.3 kg
[~2020-04-16 14:47] MED LIST changes: -FENTANYL CITRATE/PF 100MCG/2 ML INJ ONE; -GLUCAGON FOR INJ 1 MG VIAL ONE; -HYOSCYAMINE 0.125 MG TAB ONE; -METOCLOPRAMIDE HCL 10 MG/2ML VIAL ONE; -MIDAZOLAM HCL 2 MG/2 ML VIAL ONE; -PROPOFOL IV EMULSION 10 MG/ML 50 ML VIAL ONE
--- NOTE | 2020-04-16 15:05 | Emergency Department Note ---
History of Present Illnes History of Present Illness Chief Complaint: General Medicine Complaints History of Present Illness This is a 69 year old female Chief Complaint Comment PATIENT IN FROM HOME WITH COMPLAINTS OF LEFT LOWER EXTREMITY REDNESS, PAIN, AND SWELLING X 2 WEEKS; STATES WAS SENT FROM DR HENDRIX'S OFFICE FOR EVALUATION OF A DVT. Historian: Patient Arrival Mode: Car Sight Effects Specialist Required: No Onset (how long ago): week(s) (2) Location: LLE Quality: Swelling, pain Radiation: Reports non-radiation Severity: moderate Onset quality: gradual Duration (how long): week(s) (2) Timing of current episode: constant Progression: worsening Chronicity: new Context: Denies recent illness, Denies recent surgery Relieving factors: none Exacerbating factors: none Associated symptoms: Reports denies other symptoms Treatments prior to arrival: none (FRANNIE SHAY MD) Past Medical/Family History Physician Review I have reviewed the patient's past medical and family history. Any updates have been documented here. (FRANNIE SHAY MD) Past Medical History Recent Fever: No Clinical Suspicion of Infectio: No New/Unexplained Change in Ment: No Past Medical History: Hypertension, Diabetes, Hyperlipedemia, Osteoarthritis Other Medical History: gerd sleep apnea vertigo hernia repairs Past Surgical History: Appendectomy, , Knee Replacement, Hernia Repair, Bariatric Surgery Other Surgery: tummy tuck breast augmentatoin cataracts hernia repairs (FRANNIE SHAY MD) Other Last Tetanus: UTD (FRANNIE SHAY MD) Review of Systems Review of Systems Constitutional: Reports no symptoms EENTM: Reports no symptoms Cardiovascular: Reports no symptoms Respiratory: Reports no symptoms Gastrointestinal: Reports no symptoms Genitourinary: Reports no symptoms Musculoskeletal: Reports as per HPI, Reports other (LLE sweling) Integumentary: Reports no symptoms Neurological: Reports no symptoms Psychological: Reports no symptoms Endocrine: Reports no symptoms Hematological/Lymphatic: Reports no symptoms (FRANNIE SHAY MD) Physical Exam Related Data Allergies: Coded Allergies: vancomycin (Verified Allergy, Unknown, HIVES, 04/16/20) Triage Vital Signs Vital Signs Date Time Temp Pulse Resp B/P (MAP) Pulse Ox O2 Delivery O2 Flow Rate FiO2 04/16/20 14:57 97.1 75 20 178/73 100 Room Air Vital signs reviewed: Yes (FRANNIE SHAY MD) Physical Exam CONSTITUTIONAL Constitutional: Present well-developed, Present well-nourished HENT HENT: Present normocephalic, Present atraumatic, Present oropharynx keven ar/moist, Present nose normal HENT L/R: Present left ext ear normal, Present right ext ear normal EYES Eyes: Reports PERRL, Reports conjunctivae normal NECK Neck: Present ROM normal PULMONARY Pulmonary: Present effort normal, Present breath sounds normal CARDIOVASCULAR Cardiovascular: Present regular rhythm, Present heart sounds normal, Present capillary refill normal, Present normal rate GASTROINTESTINAL Abdominal: Present soft, Present nontender, Present bowel sounds normal GENITOURINARY Genitourinary: Present exam deferred SKIN Skin: Present warm, Present dry MUSCULOSKELETAL Musculoskeletal: Present ROM normal, Present edema (LLE) NEUROLOGICAL Neurological: Present alert, Present oriented x 3, Present no gross motor or sensory deficits PSYCHOLOGICAL Psychological: Present mood/affect normal, Present judgement normal (FRANNIE SHAY MD) Results Laboratory Lab results reviewed: Yes (FRANNIE SHAY MD) Imaging Imaging results reviewed: Yes (FRANNIE SHAY MD) Diagnostics Tests Diagnostic test(s) reviewed: Yes Diagnostic comments venous doppler negative for dvt (ANA MANZANO MD) Procedures 12 Lead ECG Interpretation ECG Interpretation : Sight Effects Specialist: Interpreted by ED physician Date: Apr 16, 2020 Rhythm: sinus rhythm Rate: normal QRS axis: left ST segments normal: Yes T waves normal: Yes Clinical Impression: non-specific ECG (FRANNIE SHAY MD) Assessment & Plan Medical Decision Making MDM 69-year-old female presents for left lower extremity swelling. She was sent here by her doctor's office to rule out DVT. examination is sig for left lower external swelling and pain to palpation. Lower extremities are neurovascularly intact. Diff includes DVT VS cellulitis among others. Awaiting Doppler US results. Patient handed off to Dr. Manzano @ 1800. If DVT then Rx Xa inhibitor, if not then likely treat as cellulitis. (FRANNIE SHAY MD) Reassessment Reassessment time: 16:56 Reassessment Well appearing, NAD (FRANNIE SHAY MD) Assessment & Plan Final Impression: (1) Leg swelling (FRANNIE SHAY MD) Final Impression: (1) Leg swelling (2) Cellulitis of left lower leg (ANA MANZANO MD) Last Vital Signs Date Time Temp Pulse Resp B/P (MAP) Pulse Ox O2 Delivery O2 Flow Rate FiO2 04/16/20 14:57 97.1 75 20 178/73 100 Room Air (FRANNIE SHAY MD) Home Meds Reported Medications Sucralfate (SUCRALFATE) 1 Gm Tablet, 1 GM PO DAILY, TAB 03/27/19 Lisinopril/Hydrochlorothiazide (LISINOPRIL-HCTZ 20-12.5 MG TAB) 1 Each Tablet, 1 TAB PO DAILY 07/20/17 Glimepiride (GLIMEPIRIDE) 2 Mg Tablet, 2 MG PO DAILY, TAB 11/03/15 Amlodipine Besylate (NORVASC) 5 Mg Tab, 10 MG PO HS, #30 TAB 09/30/15 Atorvastatin Calcium (ATORVASTATIN CALCIUM) 20 Mg Tablet, 40 MG PO DAILY, TAB 09/12/15 Pantoprazole Sodium* (PROTONIX) 40 Mg Tablet.dr, 40 MG PO DAILY, TAB 09/12/15 Metoclopramide Hcl (REGLAN) 10 Mg Tablet, 10 MG PO HS 09/12/15 Gabapentin (GABAPENTIN) 300 Mg Capsule, 300 MG PO DAILY, #60 CAP 02/17/15 Pioglitazone Hcl (ACTOS) 30 Mg Tablet, 30 MG PO PRN 02/17/15 FRANNIE SHAY MD Apr 16, 2020 15:05 ANA MANZANO MD Apr 16, 2020 18:11
[2020-04-16 15:20] LABS: BASOPHILS % 0.6 % (0.0-1.0); EOSINOPHILS # (AUTO) 0.1 (0.0-0.4); EOSINOPHILS % 1.8 % (0.0-6.0); HEMOGLOBIN 11.9 g/dL (12.0-16.0); LYMPHOCYTES # (AUTO) 1.3 (1.0-3.2); LYMPHOCYTES % 26.3 % (18.0-39.1); MEAN CORPUSCULAR HEMOGLOBIN 27.5 pg (28-32); MEAN CORPUSCULAR HGB CONC 31.3 g/dL (31-35); MONOCYTES # (AUTO) 0.5 (0.2-0.8); MONOCYTES % 9.2 % (4.4-11.3); NEUTROPHILS % 61.9 % (38.7-80.0); PLATELET COUNT 212 x10e3/uL (140-360); RED BLOOD COUNT 4.32 x10e6/uL (3.6-5.1); RED CELL DISTRIBUTION WIDTH 12.8 % (11.7-14.4)
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
--- OUTSIDE RECORDS SUMMARY | 2020-04-16 15:30 | XMS REPORT | Clinical Summary ---
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
[2020-04-16 15:31] LABS: INR 0.85
[2020-04-16 15:40] LABS: ALANINE AMINOTRANSFERASE 35 IU/L (0-55); ALBUMIN 4.2 g/dL (3.5-5.0); ALBUMIN/GLOBULIN RATIO 1.4 (0.8-2.0); ALKALINE PHOSPHATASE 110 IU/L (40-150); BLOOD UREA NITROGEN 15 mg/dL (7-26); BUN/CREATININE RATIO 20 (6-25); CALCIUM 8.9 mg/dL (8.4-10.2); CARBON DIOXIDE 27 mmol/L (22-29); CHLORIDE 105 mmol/L (98-107); CREATININE, SERUM 0.75 mg/dL (0.57-1.11); EST GLOMERULAR FILTRATION RATE > 60 ML/MIN (60-); GLUCOSE 98 mg/dL (74-118); SODIUM 143 mmol/L (136-145)
[2020-04-16] MEDS ORDERED: FENTANYL CITRATE/PF 100MCG/2 ML INJ IV ONE (16:30)
[2020-04-16 18:26] VITALS: BP 140/74
== END 2020-04-16 18:40 | disposition home or self-care (01) ==
LOC: ER 15:28
DX: L03.116 Cellulitis of left lower limb (principal); M79.89 Other specified soft tissue disorders; I10 Essential (primary) hypertension; E11.9 Type 2 diabetes mellitus without complications; E78.5 Hyperlipidemia, unspecified; K21.9 Gastro-esophageal reflux disease without esophagitis; G47.30 Sleep apnea, unspecified
CPT/HCPCS: 36415; 80053; 83880; 85025; 85610; 93005; 93970; 99284; J3010

== ENCOUNTER → 2020-06-13 | Outpatient (CLI) | payer MEDICARE | LOC: US 13:33 | PROVIDERS: ATTEND Family Medicine | DX: N39.0 Urinary tract infection, site not specified (principal) | CPT/HCPCS: 76770; 76857 ==

== ENCOUNTER → 2020-12-15 | Outpatient (CLI) | payer MEDICARE ==
[~2020-12-15] MED LIST changes: +FENTANYL CITRATE/PF 100MCG/2 ML INJ ONE; +LACTATED RINGER'S 1,000 ML ONE; +POVIDONE IODINE 0.05% 0.05 % ML PO ONE; +PROPOFOL IV EMULSION 10 MG/ML 20 ML VIAL ONE; +SODIUM CHLORIDE 0.9% 100 ML ONE
== END ==
LOC: OR 08:29
PROVIDERS: ATTEND Physical Medicine & Rehabilitation Pain Medicine
DX: M54.16 Radiculopathy, lumbar region (principal); R94.31 Abnormal electrocardiogram [ECG] [EKG]
CPT/HCPCS: 72148; 93005; J2704; J3010; J7050; J7121; U0002

== ENCOUNTER → 2020-12-24 | Day surgery (SDC) | payer MEDICARE ==
[2020-12-12 15:19] LABS: BASOPHILS % 0.8 % (0.0-1.0); EOSINOPHILS # (AUTO) 0.1 (0.0-0.4); EOSINOPHILS % 2.2 % (0.0-6.0); HEMATOCRIT 37.4 % (34.2-44.1); HEMOGLOBIN 11.7 g/dL (12.0-16.0); LYMPHOCYTES # (AUTO) 1.6 (1.0-3.2); LYMPHOCYTES % 31.1 % (18.0-39.1); MEAN CORPUSCULAR HEMOGLOBIN 28.2 pg (28-32); MEAN CORPUSCULAR HGB CONC 31.3 g/dL (31-35); MEAN CORPUSCULAR VOLUME 90.1 fL (81-99); MONOCYTES # (AUTO) 0.5 (0.2-0.8); MONOCYTES % 9.8 % (4.4-11.3); NEUTROPHILS # (AUTO) 2.9 (2.1-6.9); NEUTROPHILS % 55.9 % (38.7-80.0); PLATELET COUNT 201 x10e3/uL (140-360); RED BLOOD COUNT 4.15 x10e6/uL (3.6-5.1); RED CELL DISTRIBUTION WIDTH 13.5 % (11.7-14.4)
[2020-12-12 15:42] LABS: ANION GAP 14.3 mmol/L (8-16); CALCIUM 8.8 mg/dL (8.4-10.2); CREATININE, SERUM 1.22 mg/dL (0.57-1.11); POTASSIUM 4.3 mmol/L (3.5-5.1)
[~2020-12-24] MED LIST changes: -FENTANYL CITRATE/PF 100MCG/2 ML INJ ONE; +HYOSCYAMINE SULFATE 0.5 MG/ML INJ ONE; -LACTATED RINGER'S 1,000 ML ONE; +LIDOCAINE HCL 2% LOCAL INJ 5 ML SDV VIAL INJ ONE; -POVIDONE IODINE 0.05% 0.05 % ML PO ONE; -SODIUM CHLORIDE 0.9% 100 ML ONE
[2020-12-24 10:00] VITALS: BP 117/63
[2020-12-24 13:07] LABS: WBC,FECAL (FECAL LACTOFERRIN) NEGATIVE (NEGATIVE)
[2020-12-24 13:51] LABS: C DIFFICILE TOXIN A&B AMP PROB NEGATIVE (NEGATIVE)
== END | disposition home or self-care (01) ==
LOC: OR 07:23
PROVIDERS: ATTEND Internal Medicine Gastroenterology
CPT/HCPCS: 36415; 43239; 43450; 45378; 45380; 80048; 82948; 83630; 83993; 85025; 87045; 87177; 87328; 87493; 88305; 88312; 93005; J1980; J2001; U0002

== ENCOUNTER → 2021-01-08 | Day surgery (SDC) | payer MEDICARE ==
[~2021-01-08] MED LIST changes: +DEXAMETHASONE SOD PHOS 10 MG/1 ML VIAL ONE; +FENTANYL CITRATE/PF 100MCG/2 ML INJ ONE; -HYOSCYAMINE SULFATE 0.5 MG/ML INJ ONE; +IOPAMIDOL 200 MG/ML 20 ML VIAL IT ONE; +LIDOCAINE HCL 1% 30ML-PF VIAL ONE; -LIDOCAINE HCL 2% LOCAL INJ 5 ML SDV VIAL INJ ONE; +MIDAZOLAM HCL 2 MG/2 ML VIAL ONE; +POVIDONE IODINE 0.05% 0.05 % ML PO ONE
[2021-01-08 07:25] VITALS: BP 119/67
== END | disposition home or self-care (01) ==
LOC: OR 07:09
PROVIDERS: ATTEND Physical Medicine & Rehabilitation Pain Medicine
DX: M47.26 Other spondylosis with radiculopathy, lumbar region (principal); M51.26 Other intervertebral disc displacement, lumbar region; R93.7 Abnormal findings on diagnostic imaging of other parts of musculoskeletal system; G47.33 Obstructive sleep apnea (adult) (pediatric); I10 Essential (primary) hypertension; E78.5 Hyperlipidemia, unspecified; D46.9 Myelodysplastic syndrome, unspecified; E11.9 Type 2 diabetes mellitus without complications; K21.9 Gastro-esophageal reflux disease without esophagitis; N39.0 Urinary tract infection, site not specified; F41.9 Anxiety disorder, unspecified; Z88.1 Allergy status to other antibiotic agents; Z01.812 Encounter for preprocedural laboratory examination; Z20.822 Contact with and (suspected) exposure to COVID-19; Z86.73 Personal history of transient ischemic attack (TIA), and cerebral infarction without residual deficits; Z79.84 Long term (current) use of oral hypoglycemic drugs; Z79.82 Long term (current) use of aspirin; Z96.653 Presence of artificial knee joint, bilateral
CPT/HCPCS: 36415; 64483; 64484 ×2; 82948; J1100; J2001; J2250; J2704; J3010; Q9967; U0002; 77003

== ENCOUNTER → 2021-03-26 | Day surgery (SDC) | payer MEDICARE ==
[2021-03-24 08:56] LABS: BASOPHILS % 0.7 % (0.0-1.0); EOSINOPHILS # (AUTO) 0.1 (0.0-0.4); EOSINOPHILS % 2.5 % (0.0-6.0); HEMATOCRIT 37.2 % (34.2-44.1); HEMOGLOBIN 11.3 g/dL (12.0-16.0); LYMPHOCYTES # (AUTO) 1.2 (1.0-3.2); LYMPHOCYTES % 30.1 % (18.0-39.1); MEAN CORPUSCULAR HEMOGLOBIN 27.1 pg (28-32); MEAN CORPUSCULAR HGB CONC 30.4 g/dL (31-35); MEAN CORPUSCULAR VOLUME 89.2 fL (81-99); MONOCYTES # (AUTO) 0.5 (0.2-0.8); MONOCYTES % 11.5 % (4.4-11.3); NEUTROPHILS # (AUTO) 2.2 (2.1-6.9); PLATELET COUNT 199 x10e3/uL (140-360); RED BLOOD COUNT 4.17 x10e6/uL (3.6-5.1); RED CELL DISTRIBUTION WIDTH 13.1 % (11.7-14.4)
[~2021-03-26] MED LIST changes: -DEXAMETHASONE SOD PHOS 10 MG/1 ML VIAL ONE; -FENTANYL CITRATE/PF 100MCG/2 ML INJ ONE; -LIDOCAINE HCL 1% 30ML-PF VIAL ONE; -MIDAZOLAM HCL 2 MG/2 ML VIAL ONE; -POVIDONE IODINE 0.05% 0.05 % ML PO ONE; -PROPOFOL IV EMULSION 10 MG/ML 20 ML VIAL ONE
[2021-03-26 07:35] VITALS: BP 118/65
== END | disposition home or self-care (01) ==
LOC: OR 05:46
PROVIDERS: ATTEND Physical Medicine & Rehabilitation Pain Medicine
DX: M47.26 Other spondylosis with radiculopathy, lumbar region (principal); M47.816 Spondylosis without myelopathy or radiculopathy, lumbar region; R93.7 Abnormal findings on diagnostic imaging of other parts of musculoskeletal system; M51.26 Other intervertebral disc displacement, lumbar region; G47.33 Obstructive sleep apnea (adult) (pediatric); E11.9 Type 2 diabetes mellitus without complications; I10 Essential (primary) hypertension; E78.5 Hyperlipidemia, unspecified; D64.9 Anemia, unspecified; I83.90 Asymptomatic varicose veins of unspecified lower extremity; K21.9 Gastro-esophageal reflux disease without esophagitis; Z88.1 Allergy status to other antibiotic agents; Z01.812 Encounter for preprocedural laboratory examination; Z20.822 Contact with and (suspected) exposure to COVID-19; Z79.82 Long term (current) use of aspirin; Z79.84 Long term (current) use of oral hypoglycemic drugs; Z68.38 Body mass index [BMI] 38.0-38.9, adult; Z87.440 Personal history of urinary (tract) infections; Z86.73 Personal history of transient ischemic attack (TIA), and cerebral infarction without residual deficits
CPT/HCPCS: 36415 ×2; 64483; 64484; 82948; 85025; Q9967; U0002; 77003

== ENCOUNTER → 2021-04-16 | Day surgery (SDC) | payer MEDICARE ==
[~2021-04-16] MED LIST changes: -IOPAMIDOL 200 MG/ML 20 ML VIAL IT ONE; +POVIDONE IODINE 0.05% 0.05 % ML PO ONE; +PROPOFOL IV EMULSION 10 MG/ML 20 ML VIAL ONE
[2021-04-16 07:35] VITALS: BP 132/65
== END | disposition home or self-care (01) ==
LOC: OR 06:08
PROVIDERS: ATTEND Physical Medicine & Rehabilitation Pain Medicine
DX: M54.16 Radiculopathy, lumbar region (principal); M51.26 Other intervertebral disc displacement, lumbar region; M48.061 Spinal stenosis, lumbar region without neurogenic claudication; M47.816 Spondylosis without myelopathy or radiculopathy, lumbar region; M54.12 Radiculopathy, cervical region; R93.7 Abnormal findings on diagnostic imaging of other parts of musculoskeletal system; G47.33 Obstructive sleep apnea (adult) (pediatric); I10 Essential (primary) hypertension; E11.9 Type 2 diabetes mellitus without complications; D64.9 Anemia, unspecified; K21.9 Gastro-esophageal reflux disease without esophagitis; Z88.1 Allergy status to other antibiotic agents; Z01.810 Encounter for preprocedural cardiovascular examination; Z01.812 Encounter for preprocedural laboratory examination; Z20.822 Contact with and (suspected) exposure to COVID-19; Z79.82 Long term (current) use of aspirin; Z79.84 Long term (current) use of oral hypoglycemic drugs; Z96.653 Presence of artificial knee joint, bilateral
CPT/HCPCS: 36415; 62323; 82948; 93005; J2704; U0002; 77003

== ENCOUNTER → 2021-05-14 | Day surgery (SDC) | payer MEDICARE ==
[2021-05-12 10:50] LABS: BASOPHILS % 0.8 % (0.0-1.0); EOSINOPHILS # (AUTO) 0.1 (0.0-0.4); EOSINOPHILS % 2.3 % (0.0-6.0); HEMATOCRIT 34.7 % (34.2-44.1); HEMOGLOBIN 10.8 g/dL (12.0-16.0); LYMPHOCYTES # (AUTO) 1.6 (1.0-3.2); LYMPHOCYTES % 29.6 % (18.0-39.1); MEAN CORPUSCULAR HGB CONC 31.1 g/dL (31-35); MEAN CORPUSCULAR VOLUME 86.8 fL (81-99); MONOCYTES # (AUTO) 0.5 (0.2-0.8); MONOCYTES % 10.2 % (4.4-11.3); NEUTROPHILS % 56.9 % (38.7-80.0); PLATELET COUNT 228 x10e3/uL (140-360); RED CELL DISTRIBUTION WIDTH 13.4 % (11.7-14.4)
[~2021-05-14] MED LIST changes: +ASPIRIN CHEW81 MG PO; +BUPIVACAINE 0.25% 30ML SDV ONE; +DEXAMETHASONE SOD PHOS 10 MG/1 ML VIAL ONE; +FENTANYL CITRATE/PF 100MCG/2 ML INJ ONE; +IOPAMIDOL 200 MG/ML 20 ML VIAL IT ONE; +LIDOCAINE HCL 1% 30ML-PF VIAL ONE; +MIDAZOLAM HCL 2 MG/2 ML VIAL ONE
[2021-05-14 08:06] VITALS: BP 115/61
== END | disposition home or self-care (01) ==
LOC: OR 07:07
PROVIDERS: ATTEND Physical Medicine & Rehabilitation Pain Medicine
DX: M54.16 Radiculopathy, lumbar region (principal); M51.26 Other intervertebral disc displacement, lumbar region; M48.061 Spinal stenosis, lumbar region without neurogenic claudication; M54.12 Radiculopathy, cervical region; R93.7 Abnormal findings on diagnostic imaging of other parts of musculoskeletal system; G47.33 Obstructive sleep apnea (adult) (pediatric); I10 Essential (primary) hypertension; E11.9 Type 2 diabetes mellitus without complications; Z88.1 Allergy status to other antibiotic agents; Z01.812 Encounter for preprocedural laboratory examination; Z20.822 Contact with and (suspected) exposure to COVID-19; Z79.82 Long term (current) use of aspirin; Z79.84 Long term (current) use of oral hypoglycemic drugs; Z98.84 Bariatric surgery status; Z86.73 Personal history of transient ischemic attack (TIA), and cerebral infarction without residual deficits
CPT/HCPCS: 36415 ×2; 62323; 77003; 82948; 85025; J1100; J2001; J2250; J2704; J3010; Q9967; U0002

== ENCOUNTER → 2021-06-04 | Outpatient (CLI) | payer MEDICARE ==
[~2021-06-04] MED LIST changes: -BUPIVACAINE 0.25% 30ML SDV ONE; -DEXAMETHASONE SOD PHOS 10 MG/1 ML VIAL ONE; -FENTANYL CITRATE/PF 100MCG/2 ML INJ ONE; -IOPAMIDOL 200 MG/ML 20 ML VIAL IT ONE; -LIDOCAINE HCL 1% 30ML-PF VIAL ONE; -MIDAZOLAM HCL 2 MG/2 ML VIAL ONE; -POVIDONE IODINE 0.05% 0.05 % ML PO ONE; -PROPOFOL IV EMULSION 10 MG/ML 20 ML VIAL ONE
== END ==
LOC: RAD 05:37 → OR 05:37 → EDSTATUS 07:00
PROVIDERS: ATTEND Physical Medicine & Rehabilitation Pain Medicine
DX: M47.896 Other spondylosis, lumbar region (principal); Z01.812 Encounter for preprocedural laboratory examination; Z20.822 Contact with and (suspected) exposure to COVID-19; Z53.8 Procedure and treatment not carried out for other reasons
CPT/HCPCS: 36415; 82948; U0002

== ENCOUNTER → 2021-07-09 | Outpatient (CLI) | payer MEDICARE | LOC: SLEEP 20:13 | PROVIDERS: ATTEND Family Medicine | DX: G47.33 Obstructive sleep apnea (adult) (pediatric) (principal) | CPT/HCPCS: 95810 ==

== ENCOUNTER → 2021-07-16 | Outpatient (CLI) | payer MEDICARE | LOC: MAMMO 07:46 | PROVIDERS: ATTEND Family Medicine | DX: Z12.31 Encounter for screening mammogram for malignant neoplasm of breast (principal) | CPT/HCPCS: 77067 ==

== ENCOUNTER → 2021-09-10 | Day surgery (SDC) | payer MEDICARE ==
[~2021-09-10] MED LIST changes: +FENTANYL CITRATE/PF 100MCG/2 ML INJ ONE; +HYDROCODON-ACE1 EAC9 PO; +IOPAMIDOL 200 MG/ML 20 ML VIAL IT ONE; +LIDOCAINE HCL 1% 30ML-PF VIAL ONE; +LIDOCAINE HCL 2% LOCAL INJ 5 ML SDV VIAL INJ ONE; +MIDAZOLAM HCL 2 MG/2 ML VIAL ONE; +POVIDONE IODINE 0.05% 0.05 % ML PO ONE; +PROPOFOL IV EMULSION 10 MG/ML 20 ML VIAL ONE; +TIZANIDINE HCL4 M1 PO; +TRIAMCINOLONE ACET 40 MG/ML VIAL ONE
[2021-09-10 09:15] VITALS: BP 117/89
== END | disposition home or self-care (01) ==
LOC: OR 07:39
PROVIDERS: ATTEND Physical Medicine & Rehabilitation Pain Medicine
DX: M47.896 Other spondylosis, lumbar region (principal); M46.1 Sacroiliitis, not elsewhere classified; M51.26 Other intervertebral disc displacement, lumbar region; M54.12 Radiculopathy, cervical region; Z96.653 Presence of artificial knee joint, bilateral; I10 Essential (primary) hypertension; E11.9 Type 2 diabetes mellitus without complications; R06.09 Other forms of dyspnea; D64.9 Anemia, unspecified; G25.81 Restless legs syndrome; Z88.1 Allergy status to other antibiotic agents; Z01.812 Encounter for preprocedural laboratory examination; Z20.822 Contact with and (suspected) exposure to COVID-19; Z79.82 Long term (current) use of aspirin; Z79.84 Long term (current) use of oral hypoglycemic drugs; Z79.899 Other long term (current) drug therapy; Z86.73 Personal history of transient ischemic attack (TIA), and cerebral infarction without residual deficits
CPT/HCPCS: 36415; 64493; 64494; 64495; 82948; J2001 ×2; J2250; J2704; J3010; J3301; Q9967; U0002; 77003

== ENCOUNTER → 2021-11-26 | Day surgery (SDC) | payer MEDICARE ==
[2021-11-23 11:30] LABS: BASOPHILS % 0.5 % (0.0-1.0); EOSINOPHILS # (AUTO) 0.1 (0.0-0.4); EOSINOPHILS % 1.6 % (0.0-6.0); HEMATOCRIT 34.8 % (34.2-44.1); HEMOGLOBIN 10.9 g/dL (12.0-16.0); LYMPHOCYTES # (AUTO) 1.7 (1.0-3.2); LYMPHOCYTES % 38.4 % (18.0-39.1); MEAN CORPUSCULAR HEMOGLOBIN 27.9 pg (28-32); MEAN CORPUSCULAR HGB CONC 31.3 g/dL (31-35); MEAN CORPUSCULAR VOLUME 89.2 fL (81-99); MONOCYTES # (AUTO) 0.4 (0.2-0.8); NEUTROPHILS # (AUTO) 2.2 (2.1-6.9); NEUTROPHILS % 50.3 % (38.7-80.0); PLATELET COUNT 214 x10e3/uL (140-360); RED CELL DISTRIBUTION WIDTH 13.4 % (11.7-14.4)
[~2021-11-26] MED LIST changes: -FENTANYL CITRATE/PF 100MCG/2 ML INJ ONE
[2021-11-26 08:40] VITALS: BP 113/71
== END | disposition home or self-care (01) ==
LOC: OR 06:39
PROVIDERS: ATTEND Physical Medicine & Rehabilitation Pain Medicine
DX: M47.896 Other spondylosis, lumbar region (principal); M46.1 Sacroiliitis, not elsewhere classified; M54.16 Radiculopathy, lumbar region; M48.061 Spinal stenosis, lumbar region without neurogenic claudication; M54.12 Radiculopathy, cervical region; G25.81 Restless legs syndrome; G47.33 Obstructive sleep apnea (adult) (pediatric); I25.10 Atherosclerotic heart disease of native coronary artery without angina pectoris; I10 Essential (primary) hypertension; K21.9 Gastro-esophageal reflux disease without esophagitis; E11.9 Type 2 diabetes mellitus without complications; Z01.810 Encounter for preprocedural cardiovascular examination; Z01.812 Encounter for preprocedural laboratory examination; Z20.822 Contact with and (suspected) exposure to COVID-19; Z79.82 Long term (current) use of aspirin; Z79.84 Long term (current) use of oral hypoglycemic drugs; Z79.899 Other long term (current) drug therapy; Z68.37 Body mass index [BMI] 37.0-37.9, adult; Z98.84 Bariatric surgery status; Z86.73 Personal history of transient ischemic attack (TIA), and cerebral infarction without residual deficits; Z86.2 Personal history of diseases of the blood and blood-forming organs and certain disorders involving the immune mechanism
CPT/HCPCS: 36415 ×2; 64490; 64493; 64494; 82948; 85025; 93005; J2001 ×2; J2250; J2704; J3301; Q9967; U0002; 77003

== ENCOUNTER → 2022-03-16 | Outpatient (CLI) | payer MEDICARE ==
[~2022-03-16] MED LIST changes: -IOPAMIDOL 200 MG/ML 20 ML VIAL IT ONE; -LIDOCAINE HCL 1% 30ML-PF VIAL ONE; -LIDOCAINE HCL 2% LOCAL INJ 5 ML SDV VIAL INJ ONE; -POVIDONE IODINE 0.05% 0.05 % ML PO ONE; -PROPOFOL IV EMULSION 10 MG/ML 20 ML VIAL ONE; -TRIAMCINOLONE ACET 40 MG/ML VIAL ONE
== END ==
LOC: MRI 09:45
PROVIDERS: ATTEND Physical Medicine & Rehabilitation Pain Medicine
DX: M54.12 Radiculopathy, cervical region (principal)
CPT/HCPCS: 72141; J2250

== ENCOUNTER → 2022-06-11 | Outpatient (CLI) | payer MEDICARE ==
[~2022-06-11] MED LIST changes: +DIATRIZOATE MEGL/DIATRIZOA SOD 30 ML BTL PO ONE; +IOPAMIDOL 370 MG/ML 100 ML INFUS..BTL INJ ONE; -MIDAZOLAM HCL 2 MG/2 ML VIAL ONE
== END ==
LOC: CT 15:02
PROVIDERS: ATTEND Surgery
DX: R10.9 Unspecified abdominal pain (principal); K57.90 Diverticulosis of intestine, part unspecified, without perforation or abscess without bleeding
CPT/HCPCS: 74176; Q9963; Q9967

== ENCOUNTER → 2022-06-17 | Day surgery (SDC) | payer MEDICARE ==
[2022-06-16 08:34] LABS: BASOPHILS % 0.8 % (0.0-1.0); EOSINOPHILS # (AUTO) 0.1 (0.0-0.4); EOSINOPHILS % 2.4 % (0.0-6.0); HEMATOCRIT 38.1 % (34.2-44.1); HEMOGLOBIN 11.3 g/dL (12.0-16.0); LYMPHOCYTES # (AUTO) 1.7 (1.0-3.2); LYMPHOCYTES % 34.2 % (18.0-39.1); MEAN CORPUSCULAR HGB CONC 29.7 g/dL (31-35); MEAN CORPUSCULAR VOLUME 94.3 fL (81-99); MONOCYTES # (AUTO) 0.5 (0.2-0.8); MONOCYTES % 10.5 % (4.4-11.3); NEUTROPHILS # (AUTO) 2.6 (2.1-6.9); NEUTROPHILS % 51.9 % (38.7-80.0); PLATELET COUNT 188 x10e3/uL (140-360); RED BLOOD COUNT 4.04 x10e6/uL (3.6-5.1)
[~2022-06-17] MED LIST changes: +BUPIVACAINE 0.25% 30ML SDV ONE; -DIATRIZOATE MEGL/DIATRIZOA SOD 30 ML BTL PO ONE; -IOPAMIDOL 370 MG/ML 100 ML INFUS..BTL INJ ONE; +LIDOCAINE HCL 1% 30ML-PF VIAL ONE; +LIDOCAINE HCL 2% LOCAL INJ 5 ML SDV VIAL INJ ONE; +POVIDONE IODINE 0.05% 0.05 % ML PO ONE; +PROPOFOL IV EMULSION 10 MG/ML 20 ML VIAL ONE
[2022-06-17 08:56] VITALS: BP 141/83
== END | disposition home or self-care (01) ==
LOC: OR 07:11
PROVIDERS: ATTEND Physical Medicine & Rehabilitation Pain Medicine
DX: M47.892 Other spondylosis, cervical region (principal); G89.4 Chronic pain syndrome; M54.16 Radiculopathy, lumbar region; M47.816 Spondylosis without myelopathy or radiculopathy, lumbar region; R93.7 Abnormal findings on diagnostic imaging of other parts of musculoskeletal system; G47.33 Obstructive sleep apnea (adult) (pediatric); I25.10 Atherosclerotic heart disease of native coronary artery without angina pectoris; I10 Essential (primary) hypertension; E11.9 Type 2 diabetes mellitus without complications; Z88.1 Allergy status to other antibiotic agents; Z01.810 Encounter for preprocedural cardiovascular examination; Z01.812 Encounter for preprocedural laboratory examination; Z79.82 Long term (current) use of aspirin; Z79.84 Long term (current) use of oral hypoglycemic drugs; Z79.899 Other long term (current) drug therapy; Z86.73 Personal history of transient ischemic attack (TIA), and cerebral infarction without residual deficits; Z86.2 Personal history of diseases of the blood and blood-forming organs and certain disorders involving the immune mechanism
CPT/HCPCS: 36415 ×2; 64490; 64491; 64492; 82948; 85025; 93005; J2001 ×2; J2704; 77003

== ENCOUNTER → 2022-09-16 | Day surgery (SDC) | payer MEDICARE ==
[2022-09-13 10:43] LABS: BASOPHILS # (AUTO) 0.1 (0.0-0.1); BASOPHILS % 0.9 % (0.0-1.0); EOSINOPHILS # (AUTO) 0.1 (0.0-0.4); EOSINOPHILS % 1.7 % (0.0-6.0); HEMATOCRIT 40.6 % (34.2-44.1); HEMOGLOBIN 12.7 g/dL (12.0-16.0); LYMPHOCYTES # (AUTO) 1.9 (1.0-3.2); LYMPHOCYTES % 34.6 % (18.0-39.1); MEAN CORPUSCULAR HEMOGLOBIN 28.3 pg (28-32); MEAN CORPUSCULAR HGB CONC 31.3 g/dL (31-35); MEAN CORPUSCULAR VOLUME 90.4 fL (81-99); MONOCYTES # (AUTO) 0.5 (0.2-0.8); MONOCYTES % 9.3 % (4.4-11.3); NEUTROPHILS # (AUTO) 2.9 (2.1-6.9); NEUTROPHILS % 53.3 % (38.7-80.0); PLATELET COUNT 214 x10e3/uL (140-360); RED BLOOD COUNT 4.49 x10e6/uL (3.6-5.1); RED CELL DISTRIBUTION WIDTH 13.3 % (11.7-14.4)
[~2022-09-16] MED LIST changes: -BUPIVACAINE 0.25% 30ML SDV ONE; +DEXAMETHASONE SOD PHOS 10 MG/1 ML VIAL ONE; +IOPAMIDOL 200 MG/ML 20 ML VIAL IT ONE; +TRIAMCINOLONE ACET 40 MG/ML VIAL ONE
[2022-09-16 07:50] VITALS: BP 122/87
== END | disposition home or self-care (01) ==
LOC: OR 05:35
PROVIDERS: ATTEND Physical Medicine & Rehabilitation Pain Medicine
DX: M54.16 Radiculopathy, lumbar region (principal); G25.81 Restless legs syndrome; M47.896 Other spondylosis, lumbar region; M47.812 Spondylosis without myelopathy or radiculopathy, cervical region; G89.4 Chronic pain syndrome; E11.9 Type 2 diabetes mellitus without complications; I10 Essential (primary) hypertension; E78.5 Hyperlipidemia, unspecified; Z88.1 Allergy status to other antibiotic agents; Z01.812 Encounter for preprocedural laboratory examination; Z79.82 Long term (current) use of aspirin; Z79.84 Long term (current) use of oral hypoglycemic drugs; Z79.899 Other long term (current) drug therapy; Z86.2 Personal history of diseases of the blood and blood-forming organs and certain disorders involving the immune mechanism
CPT/HCPCS: 36415 ×2; 64483; 64484; 82948; 85025; J1100; J2001 ×2; J2704; J3301; Q9967; 77003

== ENCOUNTER → 2022-11-25 | Day surgery (SDC) | payer MEDICARE ==
[2022-11-24 11:31] LABS: BASOPHILS # (AUTO) 0.1 (0.0-0.1); EOSINOPHILS # (AUTO) 0.1 (0.0-0.4); EOSINOPHILS % 1.8 % (0.0-6.0); HEMATOCRIT 36.7 % (34.2-44.1); HEMOGLOBIN 11.4 g/dL (12.0-16.0); LYMPHOCYTES # (AUTO) 1.5 (1.0-3.2); LYMPHOCYTES % 29.3 % (18.0-39.1); MEAN CORPUSCULAR HEMOGLOBIN 28.1 pg (28-32); MEAN CORPUSCULAR HGB CONC 31.1 g/dL (31-35); MEAN CORPUSCULAR VOLUME 90.4 fL (81-99); MONOCYTES # (AUTO) 0.4 (0.2-0.8); MONOCYTES % 8.4 % (4.4-11.3); NEUTROPHILS % 59.1 % (38.7-80.0); PLATELET COUNT 161 x10e3/uL (140-360); RED BLOOD COUNT 4.06 x10e6/uL (3.6-5.1); RED CELL DISTRIBUTION WIDTH 13.6 % (11.7-14.4)
[~2022-11-25] MED LIST changes: +BUPIVACAINE 0.25% 30ML SDV ONE; +LACTATED RINGER'S 1,000 ML ONE; -TRIAMCINOLONE ACET 40 MG/ML VIAL ONE
[2022-11-25 07:10] VITALS: BP 123/74
== END | disposition home or self-care (01) ==
LOC: OR 06:23
PROVIDERS: ATTEND Physical Medicine & Rehabilitation Pain Medicine
DX: M54.16 Radiculopathy, lumbar region (principal); M47.896 Other spondylosis, lumbar region; M47.812 Spondylosis without myelopathy or radiculopathy, cervical region; G89.4 Chronic pain syndrome; M54.12 Radiculopathy, cervical region; E11.9 Type 2 diabetes mellitus without complications; I10 Essential (primary) hypertension; G25.81 Restless legs syndrome; Z88.1 Allergy status to other antibiotic agents; Z01.810 Encounter for preprocedural cardiovascular examination; Z01.812 Encounter for preprocedural laboratory examination; Z79.82 Long term (current) use of aspirin; Z79.84 Long term (current) use of oral hypoglycemic drugs; Z79.899 Other long term (current) drug therapy; Z86.2 Personal history of diseases of the blood and blood-forming organs and certain disorders involving the immune mechanism; Z96.653 Presence of artificial knee joint, bilateral
CPT/HCPCS: 36415 ×2; 64483; 64484; 82948; 85025; 93005; J1100; J2001 ×2; J2704; J7121; Q9967; 77003

== ENCOUNTER → 2022-12-30 | Day surgery (SDC) | payer MEDICARE ==
[2022-12-20 13:24] LABS: BASOPHILS # (AUTO) 0.1 (0.0-0.1); EOSINOPHILS # (AUTO) 0.1 (0.0-0.4); EOSINOPHILS % 2.5 % (0.0-6.0); HEMATOCRIT 32.7 % (34.2-44.1); HEMOGLOBIN 10.1 g/dL (12.0-16.0); LYMPHOCYTES # (AUTO) 1.6 (1.0-3.2); LYMPHOCYTES % 31.9 % (18.0-39.1); MEAN CORPUSCULAR HEMOGLOBIN 27.9 pg (28-32); MEAN CORPUSCULAR HGB CONC 30.9 g/dL (31-35); MEAN CORPUSCULAR VOLUME 90.3 fL (81-99); MONOCYTES # (AUTO) 0.6 (0.2-0.8); MONOCYTES % 11.2 % (4.4-11.3); NEUTROPHILS # (AUTO) 2.6 (2.1-6.9); NEUTROPHILS % 53.2 % (38.7-80.0); PLATELET COUNT 199 x10e3/uL (140-360); RED BLOOD COUNT 3.62 x10e6/uL (3.6-5.1); RED CELL DISTRIBUTION WIDTH 13.2 % (11.7-14.4)
[~2022-12-30] MED LIST changes: -BUPIVACAINE 0.25% 30ML SDV ONE; -DEXAMETHASONE SOD PHOS 10 MG/1 ML VIAL ONE; +FENTANYL CITRATE/PF 100MCG/2 ML INJ ONE; +GLYCOPYRROLATE INJ 0.2 MG/ML VIAL ONE; +HYOSCYAMINE SULFATE 0.5 MG/ML INJ ONE; -IOPAMIDOL 200 MG/ML 20 ML VIAL IT ONE; +KETAMINE HCL INJ 50 MG/ML 10 ML VIAL ONE; -LIDOCAINE HCL 1% 30ML-PF VIAL ONE; +METOCLOPRAMIDE HCL 10 MG/2ML VIAL ONE; +MIDAZOLAM HCL 2 MG/2 ML VIAL ONE
[2022-12-30 08:40] VITALS: TEMP 97.4
[2022-12-30 09:10] VITALS: BP 121/66; PULSE 81; RESP 16; O2SAT 96
== END | disposition home or self-care (01) ==
LOC: OR 07:22
PROVIDERS: ATTEND Internal Medicine Gastroenterology
DX: K29.50 Unspecified chronic gastritis without bleeding (principal); R13.10 Dysphagia, unspecified; K57.30 Diverticulosis of large intestine without perforation or abscess without bleeding; K62.89 Other specified diseases of anus and rectum; K63.2 Fistula of intestine; K21.9 Gastro-esophageal reflux disease without esophagitis; Z98.84 Bariatric surgery status; Z71.3 Dietary counseling and surveillance; G47.33 Obstructive sleep apnea (adult) (pediatric); I10 Essential (primary) hypertension; Z71.89 Other specified counseling; E11.9 Type 2 diabetes mellitus without complications; E78.00 Pure hypercholesterolemia, unspecified; G62.9 Polyneuropathy, unspecified; I25.10 Atherosclerotic heart disease of native coronary artery without angina pectoris; K44.9 Diaphragmatic hernia without obstruction or gangrene; M06.9 Rheumatoid arthritis, unspecified; M19.90 Unspecified osteoarthritis, unspecified site; Z01.812 Encounter for preprocedural laboratory examination; Z79.82 Long term (current) use of aspirin; Z79.84 Long term (current) use of oral hypoglycemic drugs; Z79.899 Other long term (current) drug therapy; Z68.33 Body mass index [BMI] 33.0-33.9, adult; Z86.73 Personal history of transient ischemic attack (TIA), and cerebral infarction without residual deficits; Z98.61 Coronary angioplasty status; Z80.0 Family history of malignant neoplasm of digestive organs
CPT/HCPCS: 36415 ×2; 43239; 43450; 45380; 82948; 85025; 88305; 88342; C9113; J1980; J2001; J2250; J2704; J2765; J3010; J7121; 45378

== ENCOUNTER → 2023-05-25 | Outpatient (REF) | payer MEDICARE ==
[~2023-05-25] MED LIST changes: -FENTANYL CITRATE/PF 100MCG/2 ML INJ ONE; -GLYCOPYRROLATE INJ 0.2 MG/ML VIAL ONE; -HYOSCYAMINE SULFATE 0.5 MG/ML INJ ONE; -KETAMINE HCL INJ 50 MG/ML 10 ML VIAL ONE; -LACTATED RINGER'S 1,000 ML ONE; -LIDOCAINE HCL 2% LOCAL INJ 5 ML SDV VIAL INJ ONE; -METOCLOPRAMIDE HCL 10 MG/2ML VIAL ONE; -MIDAZOLAM HCL 2 MG/2 ML VIAL ONE; -POVIDONE IODINE 0.05% 0.05 % ML PO ONE; -PROPOFOL IV EMULSION 10 MG/ML 20 ML VIAL ONE
== END ==
LOC: MAMMO 09:11
PROVIDERS: ATTEND Podiatrist Foot & Ankle Surgery
DX: Z12.31 Encounter for screening mammogram for malignant neoplasm of breast (principal)
CPT/HCPCS: 77067

== ENCOUNTER → 2023-05-31 | Outpatient (REF) | payer MEDICARE | LOC: MRI 09:59 | PROVIDERS: ATTEND Physical Medicine & Rehabilitation Pain Medicine | DX: M54.16 Radiculopathy, lumbar region (principal); M47.896 Other spondylosis, lumbar region | CPT/HCPCS: 72148 ==

== ENCOUNTER → 2023-06-16 | Day surgery (SDC) | payer MEDICARE ==
[2023-06-14 10:27] LABS: BASOPHILS % 0.9 % (0.0-1.0); EOSINOPHILS # (AUTO) 0.1 (0.0-0.4); EOSINOPHILS % 2.8 % (0.0-6.0); HEMATOCRIT 31.4 % (34.2-44.1); LYMPHOCYTES # (AUTO) 1.2 (1.0-3.2); LYMPHOCYTES % 28.9 % (18.0-39.1); MEAN CORPUSCULAR HEMOGLOBIN 27.6 pg (28-32); MEAN CORPUSCULAR HGB CONC 31.8 g/dL (31-35); MEAN CORPUSCULAR VOLUME 86.7 fL (81-99); MONOCYTES # (AUTO) 0.4 (0.2-0.8); MONOCYTES % 10.1 % (4.4-11.3); NEUTROPHILS # (AUTO) 2.4 (2.1-6.9); NEUTROPHILS % 57.1 % (38.7-80.0); PLATELET COUNT 190 x10e3/uL (140-360); RED BLOOD COUNT 3.62 x10e6/uL (3.6-5.1); RED CELL DISTRIBUTION WIDTH 14.6 % (11.7-14.4); WHITE BLOOD COUNT 4.26 x10e3/uL (4.8-10.8)
[~2023-06-16] MED LIST changes: +DEXAMETHASONE SOD PHOS 10 MG/1 ML VIAL ONE; +IOPAMIDOL 200 MG/ML 20 ML VIAL IT ONE; +LACTATED RINGER'S 1,000 ML ONE; +LIDOCAINE HCL 1% 30ML-PF VIAL ONE; +LIDOCAINE HCL 2% LOCAL INJ 5 ML SDV VIAL INJ ONE; +PROPOFOL IV EMULSION 10 MG/ML 20 ML VIAL ONE
[2023-06-16 08:30] VITALS: BP 124/61; PULSE 63; RESP 14; TEMP 97.8; O2SAT 100
== END | disposition home or self-care (01) ==
LOC: OR 05:57
PROVIDERS: ATTEND Physical Medicine & Rehabilitation Pain Medicine
DX: M54.16 Radiculopathy, lumbar region (principal); G89.4 Chronic pain syndrome; I10 Essential (primary) hypertension; I25.2 Old myocardial infarction; R00.1 Bradycardia, unspecified; K21.9 Gastro-esophageal reflux disease without esophagitis; E11.9 Type 2 diabetes mellitus without complications; Z79.84 Long term (current) use of oral hypoglycemic drugs; G25.81 Restless legs syndrome; D64.9 Anemia, unspecified; Z86.73 Personal history of transient ischemic attack (TIA), and cerebral infarction without residual deficits; Z98.84 Bariatric surgery status; Z01.810 Encounter for preprocedural cardiovascular examination; Z01.812 Encounter for preprocedural laboratory examination; Z79.899 Other long term (current) drug therapy
CPT/HCPCS: 36415 ×2; 64483; 64484 ×2; 82948; 85025; 93005; J1100; J2001 ×2; J2704; J7121; Q9967; 77002

== ENCOUNTER → 2024-02-16 | Outpatient (REF) | payer MEDICARE ==
[~2024-02-16] MED LIST changes: +ASPIRIN81 MG PO; -DEXAMETHASONE SOD PHOS 10 MG/1 ML VIAL ONE; -IOPAMIDOL 200 MG/ML 20 ML VIAL IT ONE; -LACTATED RINGER'S 1,000 ML ONE; -LIDOCAINE HCL 1% 30ML-PF VIAL ONE; -LIDOCAINE HCL 2% LOCAL INJ 5 ML SDV VIAL INJ ONE; -PROPOFOL IV EMULSION 10 MG/ML 20 ML VIAL ONE
== END ==
LOC: DX 09:41
PROVIDERS: ATTEND Family Medicine
DX: M85.88 Other specified disorders of bone density and structure, other site (principal)
CPT/HCPCS: 77080